=== PATIENT | male | born 1955 | race Caucasian/White ===

== ENCOUNTER → 2020-10-10 09:06 | Outpatient (CLI) | payer OTHER, SELFPAY ==
--- NOTE | ~2020-10-10 | US_ITS ---
EXAMINATION: US aorta [facility] DATE: 10/10/2020 09:38 INDICATION: Abdominal aortic aneurysm screening. TECHNIQUE: Grayscale, color Doppler, and pulsed Doppler images of the aorta and common iliac arteries were obtained. COMPARISON: None. FINDINGS: The aorta is normal in caliber. The right common iliac artery is obscured by bowel gas. The left comm on iliac artery is obscured by bowel gas. IMPRESSION: 1. No abdominal aortic aneurysm. Reviewed, dictated and finalized at location A.
== END ==
PROVIDERS: PCP Internal Medicine; Visit Provider Internal Medicine
DX: Z87.891 Personal history of nicotine dependence (principal)
CPT/HCPCS: 76706

== ENCOUNTER 2024-02-28 13:35 | Observation (INO) | payer OTHER, SELFPAY ==
[2024-02-28] VITALS (14 sets, daily range): BP systolic 110–146; BP diastolic 72–86; PULSE 80–168; RESP 15–23; TEMP 36.5; O2SAT 96–99; BMI 40.2
--- NOTE | ~2024-02-28 | XR_ITS ---
EXAMINATION: XR chest 2V DATE: 02/28/2024 21:04 INDICATION: New atrial flutter. Fall. TECHNIQUE: PA and lateral views of the chest were obtained. COMPARISON: Chest radiograph dated 09/04/06 warm and FINDINGS: The lungs are clear with no focal airspace opacities, pulmonary edema, pleural effusion or pneumothor ax. The cardiomediastinal silhouette is normal. Chronic right scapular fracture. IMPRESSION: 1. No acute cardiopulmonary disease. Reviewed, dictated and finalized at location A.
--- NOTE | ~2024-02-28 | XR_ITS ---
EXAMINATION: XR shoulder RT min 2V DATE: 02/28/2024 14:49 INDICATION: Right shoulder pain. Fall. TECHNIQUE: 4 views of right shoulder were obtained. COMPARISON: Right shoulder radiographs 11/19/2009 FINDINGS: Alignment is normal. No fracture. Glenohumeral joint is normal. There is severe acromioclav icular joint osteoarthritis. IMPRESSION: 1. Severe acromioclavicular joint osteoarthritis. Reviewed, dictated and finalized at location A.
--- NOTE | ~2024-02-28 | XR_ITS ---
EXAMINATION: XR shoulder LT min 2V DATE: 02/28/2024 14:49 INDICATION: Left shoulder pain. TECHNIQUE: 4 views of left shoulder were obtained. COMPARISON: Left shoulder radiograph 11/19/2009 FINDINGS: Bone alignment is normal. No fracture. Glenohumeral joint is normal. There is severe acromi oclavicular joint osteoarthritis. IMPRESSION: 1. Severe acromioclavicular joint osteoarthritis. Reviewed, dictated and finalized at location A.
--- NOTE | 2024-02-28 13:46 | ECG_ITS ---
Test Date: 2024-02-28 13:57:54 Measurements Intervals [place] Rate: 152 P: 0 RI: 0 QRS: 51 QRSD: 88 T: 48 QT: 307 QTc: 489 Interpretive Statements ATRIAL FLUTTER/TACHYCARDIA WITH RAPID VENTRICULAR RESPONSE WITH ABERRANT CONDUCTION OR VENTRICULAR PREMATURE COMPLEXES LOW QRS VOLTAGE IN PRECORDIAL LEADS [QRS DEFLECTION < 1.0 mV IN CHEST LEADS] INCOMPLETE RIGHT BUNDLE BRANCH BLOCK No previous ECG available for comparison Electronically Signed On 02-29-2024 14:23:48 CDT by Aaliyah Reilly M.D.
--- NOTE | 2024-02-28 14:00 | ED.UPPEXIN ---
HPI - Extremity Injury (Upper) General Chief Complaint: Extremity Injury, Upper Stated Complaint: Fall, Bilateral Shoulder Pain Time Seen by Provider: 02/28/24 13:53 Source: patient and family Mode of arrival: ambulatory Limitations: no limitations History of Present Illness HPI narrative: Patient presents with bilateral shoulder pain after a fall yesterday. He tripped in his yard after mowing, thinks he might have stumbled on a mole hole. No loss of consciousness. He has not yet taken anything for pain. Last night he was unable to life either extremity but someone helped him perform range of motion exercises and he was able to move arm after that. Found to have an elevated heart rate but he denies chest pain or shortness of breath. No diagnosis of Afib/Aflutter. No on anticoagulation. He takes lisinopril for hypertension and allopurinol for gout. Also lipitor for HLD. Related Data Home Medications Medication Instructions Recorded Confirmed magnesium 200 mg tablet 400 mg PO DAILY 10/29/19 02/28/24 cholecalciferol (vitamin D3) 125 125 mcg PO DAILY 12/17/20 02/28/24 mcg (5,000 unit) capsule Allergies Allergy/AdvReac Type Severity Reaction Status Date / Time No Known Allergies Allergy Verified 02/28/24 14:56 [facility] Past Medical History Medical History Atrial flutter with rapid ventricular response COVID-19 vaccine series completed Dyslipidemia History of gout History of tobacco use HTN (hypertension), benign Vitamin D deficiency Surgical History Surgical History H/O gastric bypass Family History Family History Father Hypertension Dementia Social History Social History Smoking packs per day: 1 Smoking cigarettes per day: 20.0 Years smoked: 30 Smoking pack-years: 30.00 Smoking status: Current every day smoker Tobacco type: cigarettes Second hand tobacco smoke exposure: Yes Smoking end date: 07/10/03 Alcohol intake: current Drinks per week: 70 Substance use type: marijuana Last use: 02/27/24 Do You Feel Safe in your Home?: Yes Lack of Transportation: No Lack of Food: Never True Current Housing: I Have Housing Concerned About Future Housing: No Difficulty Paying Gas/Electric Bills: No Difficulty Paying for Meds: No Currently Unemployed: No Education: High School Diploma/GED Difficulty w/ Childcare or Family Care: No Spiritual care concerns: No Exam Const: General: healthy appearing, no acute distress and alert; No diaphoretic or ill appearing Nutritional Appearance: well nourished and obese Orientation/consciousness: patient oriented x3 Limitations: no limitations HENMT: Head: normal to inspection Other: gross auditory acuity intact Eyes: Conjunctivae: conjunctivae normal Direct Ophthalmoscopy: no photophobia Other: no scleral icterus Neck: Neck: no meningeal signs Chest: Chest palpation & inspection: normal inspection of the chest Resp: Effort & Inspection: normal respiratory effort, not labored, no retractions, not tachypneic and no use of accessory muscles Cardio: Rate: tachycardic Rhythm: abnormal rhythm GI: GI Palp: Yes Soft to palpation Skin: General skin exam: normal color, no jaundice and no pallor Neuro: General: patient oriented x3, no meningeal signs and no focal motor deficits Speech: normal speech Psych: Mental Status: mental status grossly normal Affect: normal affect Attitude: cooperative Course Vital Signs Vital signs: Vital Signs Temperature 97.7 F 02/28/24 13:42 Pulse Rate 168 H 02/28/24 13:42 Respiratory Rate 20 02/28/24 13:42 Blood Pressure 110/74 02/28/24 13:42 Pulse Oximetry 96 02/28/24 13:42 Oxygen Delivery Room Air 02/28/24 13:42 Temperature 98.3
[2024-02-28] MEDS: dilTIAZem HCl INJ 25 MG/5 ML VIAL IV PUSH (14:06)
--- NOTE | 2024-02-28 14:13 | ECG_ITS ---
Test Date: 2024-02-28 14:13:24 Measurements Intervals [place] Rate: 91 P: 0 FL: 0 QRS: 31 QRSD: 93 T: 37 QT: 356 QTc: 438 Interpretive Statements ATRIAL FLUTTER/TACHYCARDIA LOW QRS VOLTAGE IN PRECORDIAL LEADS [QRS DEFLECTION < 1.0 mV IN CHEST LEADS] INCOMPLETE RIGHT BUNDLE BRANCH BLOCK Compared to ECG 02/28/2024 13:57:54 RVR NO LONGER PRESENT Electronically Signed On 02-29-2024 14:24:37 CDT by Aaliyah Reilly M.D.
[2024-02-28] MEDS: HYDROcodone/acetaminophen (*CRX) 5-325 MG TABLET 1 TAB PO ×2 (14:27→19:25)
[2024-02-28 14:47] LABS: Alanine Aminotransferase 54 U/L (6-50); Albumin Level 4.1 g/dL (3.5-5.1); Alkaline Phosphatase 88 U/L (38-126); Anion Gap 14 mmol/L (4-12); Aspartate Amino Transferase 84 U/L (17-59); Basophils Absolute Auto 0.1 K/mm3 (0.0-0.1); Basophils Percent Auto 0.5 % (0.2-1.2); Bilirubin,Total 0.8 mg/dL (0.2-1.3); Blood Urea Nitrogen 5 mg/dL (9-20); Carbon Dioxide 19 mmol/L (22-30); Chloride 103 mmol/L (98-107); Eosinophils Absolute Auto 0.1 K/mm3 (0-0.3); Eosinophils Percent Auto 0.5 % (0-4.4); Estimated CRCL calculation 115 ml/min; Estimated Glomerular Filt Rate > 60; Glucose 105 mg/dL (65-110); Hemoglobin 16.8 g/dL (14.0-18.0); Immature Granulocyte Absolute 0.07 K/mm3 (0.00-0.031); Immature Granulocyte Percent A 0.7 % (0-0.5); Lymphocytes Absolute Auto 1.78 K/mm3 (0.9-3.2); Lymphocytes Percent Auto 18.4 % (18.3-44.2); Magnesium 1.7 mg/dL (1.6-2.3); Mean Corpuscular HGB Conc 34.3 g/dl (32-36); Mean Corpuscular Hemoglobin 33.9 pg (26-34); Mean Platelet Volume 11.3 fl (7.4-10.4); Monocytes Absolute Auto 1.1 K/mm3 (0.1-0.6); Monocytes Percent Auto 11.4 % (2.6-8.5); Neutrophils Absolute Auto 6.6 K/mm3 (1.3-6.7); Neutrophils Percent Auto 68.5 % (45.5-73.1); Platelet Count Result 292 k/mm3 (150-375); Potassium 4.5 mmol/L (3.4-5.0); Red Blood Count 4.95 M/mm3 (4.6-6.20); Red Cell Distribution Width 13.8 % (11.5-14.5); Sodium 136 mmol/L (137-145); White Blood Count 9.7 K/mm3 (4.5-10.0)
--- NOTE | 2024-02-28 17:34 | PM.IMHP ---
H&P: HPI History of Present Illness Date/Time: 02/28/24 17:34 Chief Complaint: Fall Narrative: 69 y/o M presents here after a ground-level fall with PMH of dyslipidemia, gout, hypertension, and tobacco use (1 PPD, 25 years approximately). The Patient presents here for further evaluation after a ground level fall that occurred yesterday. Patient reports he had tripped and fell while he was mowing his grass due to stepping in a mole hole. Denies head strike or loss of consciousness. Post-fall he was complaining of bilateral shoulder pain and inability to lift either extremity well due to pain. Denies weakness in BUE. Patient is not on anticoagulation. During workup in the emergency department, it was noted on patient's telemetry that he was tachycardic. EKG showed new atrial flutter. Patient has no known history of dysrhythmia. He denies accompanying chest pain, palpitations, dizziness, presyncope, nausea/vomiting, fatigue, or diaphoresis. Patient was given diltiazem 25 mg IVP with conversion to normal sinus rhythm. Initial VS at presentation: 97.7? F, HR 168, RR 20, 110/74, and 96% on RA. ED workup showed: No leukocytosis, no anemia, creatinine 0.7 and GFR >60, AST 84, ALT 54, TSH 1.51. left shoulder XR showed severe acromioclavicular joint osteoarthritis. Left shoulder XR showed severe acromioclavicular joint osteoarthritis. initial EKG showed atrial flutter /tachycardia with RVR, rate 152. Review of Systems Review of Systems: All systems reviewed & are unremarkable except as noted in HPI and below [facility] Past Medical History Medical History Atrial flutter with rapid ventricular response COVID-19 vaccine series completed Dyslipidemia History of gout History of tobacco use HTN (hypertension), benign Vitamin D deficiency Surgical History Surgical History H/O gastric bypass Family History Family History Father Hypertension Dementia Social History Social History Smoking packs per day: 1 Smoking cigarettes per day: 20.0 Years smoked: 30 Smoking pack-years: 30.00 Smoking status: Current every day smoker Tobacco type: cigarettes Second hand tobacco smoke exposure: Yes Smoking end date: 07/10/03 Alcohol intake: current Drinks per week: 70 Substance use type: marijuana Last use: 02/27/24 Do You Feel Safe in your Home?: Yes Lack of Transportation: No Lack of Food: Never True Current Housing: I Have Housing Concerned About Future Housing: No Difficulty Paying Gas/Electric Bills: No Difficulty Paying for Meds: No Currently Unemployed: No Education: High School Diploma/GED Difficulty w/ Childcare or Family Care: No Spiritual care concerns: No Meds Home Medications and Allergies Home Medications Medication Instructions Recorded Confirmed Type magnesium 200 mg tablet 400 mg PO DAILY 10/29/19 02/28/24 History cholecalciferol (vitamin D3) 125 125 mcg PO DAILY 12/17/20 02/28/24 History mcg (5,000 unit) capsule allopurinol 100 mg tablet See Rx Instructions .Route 11/17/23 02/28/24 Rx .COMPLEX #180 tabs lisinopril 20 mg tablet See Rx Instructions .Route 12/27/23 02/28/24 Rx .COMPLEX #90 tabs Allergies Allergy/AdvReac Type Severity Reaction Status Date / Time No Known Allergies Allergy Verified 02/28/24 14:56 Vital Signs Vital Signs - 24 hr 02/28/24 13:42 02/28/24 14:12 02/28/24 14:16 Temperature 97.7 F Pulse Rate 168 H 85 80 Respiratory Rate 20 20 21 H Blood Pressure 110/74 117/81 Pulse Oximetry 96 97 97 Oxygen Delivery Room Air 02/28/24 14:50 02/28/24 15:00 02/28/24 15:30 Temperature Pulse Rate 89 86 85 Respiratory Rate 15 15 18 Blood Pressure 126/86 Pulse Oximetry 98 98 98 Oxygen Delivery
--- NOTE | 2024-02-28 17:43 | ADMGEN ---
This patient, Michael Montanez, was admitted to IMU Room 213-01 on 02/28/2024 at 1717. Patient/family oriented to hospital policies and general routines including ID bracelet, bed and alarms, visiting hours, pain management, procedures, bathroom and other care routines, personal items, smoking policy, room service/diet, and visiting hours. Information on how to activate the Rapid Response Team has been discussed. Patient/Family are encouraged to report perceived risks to care and to ask questions if they do not understand what they are told or what they should do.
[2024-02-28] MEDS: dilTIAZem HCL 30 MG TABLET PO (18:17)
[2024-02-28] MEDS: APIXABAN 5 MG TABLET PO (21:56)
[2024-02-29] VITALS (21 sets, daily range): BP systolic 114–159; BP diastolic 68–84; PULSE 66–113; RESP 18–22; TEMP 36.2–37.4; O2SAT 96–100
--- NOTE | 2024-02-29 | ECHO_ITS ---
Patient Info Name: Michael Montanez Age: 69 years : 1955 Gender: Male Ht: 70 in Wt: 280 lbs BSA: 2.56 m2 HR: 75 bpm BP: 137 / 80 mmHg Technical Quality: Fair Exam Date: 02/29/2024 10:25 AM Exam Location: Echo Lab Patient Status: Outpatient Admit Date: 02/28/2024 Staff Ordering Physician: Tamra Bhandari APRN Ribbon Winder: Jocy Hernandez RDCS Attending Provider: Ronda Wyman MD Referring Physician: Elisabet TRINIDAD; Exam Type: CA echo doppler color flow Study Info Indications - new dysrhythmia Complete two-dimensional, color flow and Doppler transthoracic echocardiogram is performed with contrast to opacify the left ventricle and to improve the deliniation of the left ventricle endocardial borders. Contrast/Agitated Saline Contrast/Ag. Saline: Definity Amount: 2.00 ml Existing IV Access: Yes IV Access Condition: patent with no signs of infiltration Summary 1. Left ventricular chamber dimension is normal. 2. Left ventricular systolic function is normal, estimated at 65-70%. 3. The left ventricular diastolic function is grade I diastolic dysfunction. 4. Right ventricular chamber dimension is mildly enlarged. 5. Right ventricular systolic function is normal. 6. Right atrial chamber dimension is mildly enlarged. 7. There is mild aortic valve regurgitation. 8. There is mild mitral valve regurgitation. 9. There is mild tricuspid valve regurgitation. Left Ventricle Left ventricular chamber dimension is normal. Left ventricular systolic function is normal, estimated at 65-70%. There is no increased left ventricular wall thickness. The left ventricular diastolic function is grade I diastolic dysfunction. Right Ventricle Right ventricular chamber dimension is mildly enlarged. Right ventricular systolic function is normal. Left Atria Left atrial chamber dimension is normal. Right Atria Right atrial chamber dimension is mildly enlarged. Atrial Septum Intact interatrial septum visualized by color flow imaging. Aortic Valve The aortic valve is probable trileaflet. There is mild aortic valve regurgitation. Pulmonic Valve The pulmonic valve is not well visualized. Mitral Valve There is mild mitral valve regurgitation. Tricuspid Valve There is mild tricuspid valve regurgitation. Pericardium/Pleural There is no pericardial effusion. Inferior Vena Cava Normal inferior vena cava with >50% collapse upon inspiration consistent with normal right atrial pressure, 3 mmHg. Aorta The aortic root size at the sinus of Valsalva is normal. Left Ventricular Outflow Tract Name Value Normal LVOT 2D LVOT Diameter 2.1 cm LVOT Doppler LVOT Peak Gradient 5 mmHg LVOT Mean Gradient 2 mmHg LVOT VTI 27 cm LVOT VTI/AV VTI Ratio 1.3 LVOT Stroke Volume 98 ml LVOT CO 6.2 l/min LVOT CI 2.4 l/min/m2 Pulmonic Valve Name Value Normal -------
[2024-02-29] MEDS: dilTIAZem HCL 30 MG TABLET PO (00:03)
--- NOTE | 2024-02-29 00:17 | ECG_ITS ---
Test Date: 2024-02-29 00:23:16 Measurements Intervals [place] Rate: 113 P: 0 MT: 0 QRS: 145 QRSD: 110 T: 138 QT: 361 QTc: 496 Interpretive Statements ATRIAL FLUTTER/TACHYCARDIA WITH RAPID VENTRICULAR RESPONSE WITH ABERRANT CONDUCTION OR VENTRICULAR PREMATURE COMPLEXES INCOMPLETE RIGHT BUNDLE BRANCH BLOCK Compared to ECG 02/28/2024 14:13:24 RVR NOW PRESENT Electronically Signed On 02-29-2024 14:44:01 CDT by Aaliyah Reilly M.D.
[2024-02-29] MEDS: MAGNESIUM SULF 2 GM/WATER 50ML 2 GM/50 ML BAG IVPB (01:04)
[2024-02-29] MEDS: dilTIAZem 100 MG/100 ML 100 MG/100 ML BAG IV CONT (01:09)
[2024-02-29 05:11] LABS: Basophils Absolute Auto 0.1 K/mm3 (0.0-0.1); Basophils Percent Auto 0.7 % (0.2-1.2); Eosinophils Absolute Auto 0.1 K/mm3 (0-0.3); Eosinophils Percent Auto 1.3 % (0-4.4); Hematocrit 48.1 % (42.0-52.0); Hemoglobin 16.1 g/dL (14.0-18.0); Immature Granulocyte Absolute 0.04 K/mm3 (0.00-0.031); Immature Granulocyte Percent A 0.6 % (0-0.5); Lymphocytes Absolute Auto 1.81 K/mm3 (0.9-3.2); Lymphocytes Percent Auto 26.6 % (18.3-44.2); Mean Corpuscular HGB Conc 33.5 g/dl (32-36); Mean Corpuscular Hemoglobin 33.4 pg (26-34); Mean Corpuscular Volume 99.8 fl (80-100); Mean Platelet Volume 11.3 fl (7.4-10.4); Monocytes Absolute Auto 0.8 K/mm3 (0.1-0.6); Monocytes Percent Auto 11.9 % (2.6-8.5); Neutrophils Percent Auto 58.9 % (45.5-73.1); Platelet Count Result 218 k/mm3 (150-375); Red Blood Count 4.82 M/mm3 (4.6-6.20); Red Cell Distribution Width 13.8 % (11.5-14.5); White Blood Count 6.8 K/mm3 (4.5-10.0)
[2024-02-29 05:27] LABS: Alanine Aminotransferase 45 U/L (6-50); Albumin Level 3.7 g/dL (3.5-5.1); Alkaline Phosphatase 82 U/L (38-126); Anion Gap 7 mmol/L (4-12); Aspartate Amino Transferase 65 U/L (17-59); Bilirubin,Total 1.3 mg/dL (0.2-1.3); Blood Urea Nitrogen 8 mg/dL (9-20); Calcium 8.8 mg/dL (8.4-10.2); Carbon Dioxide 27 mmol/L (22-30); Chloride 101 mmol/L (98-107); Estimated CRCL calculation 101 ml/min; Estimated Glomerular Filt Rate > 60; Glucose 85 mg/dL (65-110); Potassium 4.1 mmol/L (3.4-5.0); Sodium 135 mmol/L (137-145)
[2024-02-29] MEDS: HYDROcodone/acetaminophen (*CRX) 5-325 MG TABLET 1 TAB PO (06:50)
[2024-02-29] MEDS: MAGNESIUM OXIDE 400 MG TABLET PO (08:26)
[2024-02-29] MEDS: lisinopriL 20 MG TABLET PO (08:26)
[2024-02-29] MEDS: CHOLECALCIFEROL 1,000 UNITS TABLET 5000 UNITS PO (08:26)
[2024-02-29] MEDS: APIXABAN 5 MG TABLET PO ×2 (08:26→19:44)
[2024-02-29] MEDS: allopurinoL 100 MG TABLET 200 MG PO (08:26)
[2024-02-29] MEDS: DICLOFENAC SODIUM 1% 100 GM GEL (*BKC) 1 APPLIC TOPICAL ×4 (08:27→19:44)
--- NOTE | 2024-02-29 09:45 | ECG_ITS ---
Test Date: 2024-02-29 09:58:25 Measurements Intervals [place] Rate: 71 P: 53 CO: 152 QRS: 19 QRSD: 95 T: 29 QT: 404 QTc: 440 Interpretive Statements SINUS RHYTHM LOW QRS VOLTAGE IN PRECORDIAL LEADS [QRS DEFLECTION < 1.0 mV IN CHEST LEADS] INCOMPLETE RIGHT BUNDLE BRANCH BLOCK [90+ ms QRS DURATION, TERMINAL R IN V1/V2, 40+ ms S IN I/aVL/V4/V5/V6] Compared to ECG 02/29/2024 00:23:16 SINUS RHYTHM NOW PRESENT Electronically Signed On 02-29-2024 15:13:14 CDT by Aaliyah Reilly M.D.
--- NOTE | 2024-02-29 13:23 | PM.CNCAR ---
Assessment and Plan Assessment and plan (1) Atrial flutter with rapid ventricular response: Code(s): I48.92 - Unspecified atrial flutter Status: Acute Assessment and Plan: This is a new diagnosis. He was asymptomatic when atrial fibrillation, so unsure of arrhythmia onset. He was placed on a diltiazem drip and spontaneously converted to sinus rhythm overnight. I discussed the diagnosis of atrial flutter including pathophysiology, management, risks/complications. Since he is already back in sinus rhythm I am going to stop his diltiazem drip and transition him to oral diltiazem. He has already appropriately been started on anticoagulation. Echo is pending. Will check an ApneaLink tonight. OK for discharge from a cardiac standpoint if his echo is unremarkable. (2) Morbid obesity: Code(s): E66.01 - Morbid (severe) obesity due to excess calories Status: Acute Assessment and Plan: Weight loss recommended. (3) Dyslipidemia: Code(s): E78.5 - Hyperlipidemia, unspecified Status: Acute Assessment and Plan: Continue statin. History of Present Illness History of Present Illness Consult date/time: 02/29/24 13:23 Requesting physician: Verna Barlow MD Consult reason: Other (atrial flutter) Reason For Visit: Aflutter RVR/ New Dx Now Rate Controlled/ Converte Narrative: Michael Montanez is a 69 year old male who came to the hospital because of bilateral shoulder pain. His initial EKG showed atrial flutter with rapid ventricular response which is why cardiology has been asked to see him. He denies any history of atrial flutter or any other arrhythmias. He denies any palpitations, chest pain, shortness of breath, edema, or orthopnea. His heart rate was initially in the 150's therefore he was placed on a diltiazem drip. Early this morning he did spontaneously convert to sinus rhythm and has remained in sinus rhythm since. He is feeling well at the time of my evaluation though he does still have some left shoulder pain. Review of Systems Review of Systems: All systems reviewed & are unremarkable except as noted in HPI and below [facility] Past Medical History Medical History Atrial flutter with rapid ventricular response COVID-19 vaccine series completed Dyslipidemia History of gout History of tobacco use HTN (hypertension), benign Vitamin D deficiency Surgical History Surgical History H/O gastric bypass Family History Family History Father Hypertension Dementia Social History Social History Smoking packs per day: 1 Smoking cigarettes per day: 20.0 Years smoked: 30 Smoking pack-years: 30.00 Smoking status: Current every day smoker Tobacco type: cigarettes Second hand tobacco smoke exposure: Yes Smoking end date: 07/10/03 Alcohol intake: current Drinks per week: 70 Substance use type: marijuana Last use: 02/27/24 Do You Feel Safe in your Home?: Yes Lack of Transportation: No Lack of Food: Never True Current Housing: I Have Housing Concerned About Future Housing: No Difficulty Paying Gas/Electric Bills: No Difficulty Paying for Meds: No Currently Unemployed: No Education: High School Diploma/GED Difficulty w/ Childcare or Family Care: No Spiritual care concerns: No Meds Home Medications and Allergies Home Medications Medication Instructions Recorded Confirmed Type magnesium 200 mg tablet 400 mg PO DAILY 10/29/19 02/28/24 History cholecalciferol (vitamin D3) 125 125 mcg PO DAILY 12/17/20 02/28/24 History mcg (5,000 unit) capsule allopurinol 100 mg tablet See Rx Instructions .Route 11/17/23 02/28/24 Rx .COMPLEX #180 tabs lisinopril 20 mg tablet See Rx Instructions .Route 12/27/23
[2024-02-29] MEDS: dilTIAZem HCL CD 120 MG CAP.24HR PO (14:04)
--- NOTE | 2024-02-29 14:15 | PM.IMPN ---
Progress Note: A&P Assessment and Plan (1) Atrial flutter with rapid ventricular response: Code(s): I48.92 - Unspecified atrial flutter Status: Acute (2) Elevated LFTs: Code(s): R79.89 - Other specified abnormal findings of blood chemistry Status: Acute Plan [age] year old male with a history of obesity, dyslipidemia, gout, hypertension, tobacco abuse. Patient reports he tripped and fell at home. Brought to the ER. Was found to be in atrial flutter with rapid ventricular rate. Cardiology has been consulted, diltiazem drip taken down. He will be transitioned to p.o. diltiazem. Pending echocardiogram. In 3 minutes spent on tobacco cessation counseling. ApneaLink. Monitor LFTs. Her blood pressure. Continue blood pressure medications. Full code. Has been started on Eliquis 5 mg p.o. b.i.d. Subjective Date/time seen: 02/29/24 14:15 Interval history: No acute overnight events. Patient denies any complaints. at bedside. Review of Systems Review of Systems: All systems reviewed & are unremarkable except as noted in HPI and below (Subjective) Exam Const: General: comfortable and no acute distress Eyes: Pupils: Equal, round and reactive pupils present Neck: Neck: supple Resp: Effort & Inspection: normal respiratory effort Auscultation: clear to auscultation bilaterally Cardio: Rate: regular rate Rhythm: regular rhythm GI: GI Palp: Yes Soft to palpation and No Tenderness to palpation present (GI) Extrem: General: no edema Objective Data Vital Signs Vital Signs: Vital Signs - 24 hr 02/28/24 14:16 02/28/24 14:50 02/28/24 15:00 Temperature Pulse Rate 80 89 86 Respiratory Rate 21 H 15 15 Blood Pressure 117/81 126/86 Pulse Oximetry 97 98 98 02/28/24 15:30 02/28/24 16:00 02/28/24 16:10 Temperature Pulse Rate 85 89 91 Respiratory Rate 18 17 23 H Blood Pressure 130/78 130/78 Pulse Oximetry 98 99 99 02/28/24 16:16 02/28/24 17:05 02/28/24 17:17 Temperature Pulse Rate 86 90 98 Respiratory Rate 17 18 Blood Pressure 130/83 128/72 Pulse Oximetry 98 99 02/28/24 17:17 02/28/24 19:59 02/28/24 20:00 Temperature 97.7 F 97.7 F Pulse Rate 86 85 98 Respiratory Rate 16 18 Blood Pressure 146/76 H 126/78 Pulse Oximetry 97 96 02/28/24 22:00 02/29/24 00:32 02/29/24 00:00 Temperature 97.9 F Pulse Rate 91 109 H 113 H Respiratory Rate 18 Blood Pressure 133/74 Pulse Oximetry 99 02/29/24 01:09 02/29/24 02:02 02/29/24 02:00 Temperature Pulse Rate 113 H 81 Respiratory Rate Blood Pressure 138/68 138/68 Pulse Oximetry 02/29/24 02:00 02/29/24 04:00 02/29/24 04:00 Temperature 97.6 F Pulse Rate 88 75 78 Respiratory Rate 18 Blood Pressure 139/75 Pulse Oximetry 100 02/29/24 04:00 02/29/24 06:00 02/29/24 08:00 Temperature 97.2 F L Pulse Rate 75 74 Respiratory Rate 18 Blood Pressure 137/80 159/84 H Pulse Oximetry 99 02/29/24 08:07 02/29/24 08:00 02/29/24 10:00 Temperature Pulse Rate 80 74 76 Respiratory Rate Blood Pressure 159/84 H Pulse Oximetry 02/29/24 10:05 02/29/24 10:00 02/29/24 12:00 Temperature Pulse Rate 79 79 78 Respiratory Rate 20 Blood Pressure 149/70 H 149/70 H 144/84 H Pulse Oximetry 97 02/29/24 12:07 02/29/24 12:00 02/29/24 14:04 Temperature Pulse Rate 78 79 82 Respiratory Rate Blood Pressure 144/84 H 114/69 Pulse Oximetry 02/29/24 14:00 Temperature Pulse Rate 72 Respiratory Rate Blood Pressure Pulse Oximetry Intake/Output Intake/Output: Intake & Output 02/26/24 02/27/24 02/28/24 02/29/24 23:59 23:59 23:59 23:59 Intake Total 742.6 Output Total 300 Balance 442.6 Meds/Results Medications: Active Medications Generic Name Dose Route Start Last Admin Trade Name Freq PRN Reason Stop Dose Admin Acetaminophen 650 mg 02/28/24 16:20 Acetaminophen 325 Mg Tablet PO Q4H PRN Mild Pain
--- NOTE | 2024-02-29 15:56 | PC.NURSE ---
This patient, Michael Montanez, was transferred to [ 301] on 02/29/24 at 1556. Personal belongings sent with patient. Report given to [SOPHIA Lawrence @ 1695 ]. Appropriate documentation sent with patient.
--- NOTE | 2024-02-29 16:48 | PC.NURSE ---
This patient, Michael Montanez, was received from IMU on 02/29/24 at 1625. Report received from SOPHIA Mary. Patient/family oriented to unit policies and routines
[2024-03-01] VITALS: PULSE 80
[2024-03-01 04:00] VITALS: PULSE 77
[2024-03-01 06:00] VITALS: BP 129/73; PULSE 69; RESP 20; TEMP 36.6; O2SAT 99
[2024-03-01 07:14] LABS: Hematocrit 45.1 % (42.0-52.0); Hemoglobin 14.9 g/dL (14.0-18.0); Mean Corpuscular Hemoglobin 33.2 pg (26-34); Mean Corpuscular Volume 100.4 fl (80-100); Mean Platelet Volume 11.6 fl (7.4-10.4); Platelet Count Result 228 k/mm3 (150-375); Red Blood Count 4.49 M/mm3 (4.6-6.20); Red Cell Distribution Width 13.7 % (11.5-14.5); White Blood Count 6.2 K/mm3 (4.5-10.0)
[2024-03-01 07:30] LABS: Alanine Aminotransferase 36 U/L (6-50); Albumin Level 3.5 g/dL (3.5-5.1); Alkaline Phosphatase 75 U/L (38-126); Anion Gap 7 mmol/L (4-12); Aspartate Amino Transferase 55 U/L (17-59); Bilirubin,Total 1.3 mg/dL (0.2-1.3); Blood Urea Nitrogen 10 mg/dL (9-20); Calcium 8.6 mg/dL (8.4-10.2); Carbon Dioxide 28 mmol/L (22-30); Chloride 99 mmol/L (98-107); Estimated CRCL calculation 114 ml/min; Estimated Glomerular Filt Rate > 60; Glucose 89 mg/dL (65-110); Magnesium 1.9 mg/dL (1.6-2.3); Potassium 3.9 mmol/L (3.4-5.0); Sodium 134 mmol/L (137-145)
[2024-03-01 08:00] VITALS: PULSE 73
--- NOTE | 2024-03-01 08:29 | PM.DS ---
DS: Admitting Diagnosis Discharge Date 03/01/2024 Admitting Diagnosis Fall DS: Discharge Diagnosis Discharge Diagnosis (1) Atrial flutter with rapid ventricular response: Code(s): I48.92 - Unspecified atrial flutter Status: Acute (2) Elevated LFTs: Code(s): R79.89 - Other specified abnormal findings of blood chemistry Status: Acute (3) Fall: Code(s): W19.XXXA - Unspecified fall, initial encounter Status: Acute DS: Summary Hospital Course Hospital Course: [age] year old male with a history of obesity, dyslipidemia, gout, hypertension, tobacco abuse. Patient reports he tripped and fell at home. Brought to the ER. Was found to be in atrial flutter with rapid ventricular rate. Cardiology has been consulted, diltiazem drip taken down. He will be transitioned to p.o. diltiazem. Echocardiogram reviewed. Okay per discharge per Cardiology. Apnea link was also done which showed high probability for sleep apnea. Advised to follow up with PCP to get sleep study done. Patient was also started on Eliquis for atrial fibrillation. Time Spent with Patient Time attestation: Total time spent providing and/or coordinating discharge services: DS: Data Data Completed and Pending Completed studies during hospitalization: Exam Type: CA echo doppler color flow Study Info Indications - new dysrhythmia Complete two-dimensional, color flow and Doppler transthoracic echocardiogram is performed with contrast to opacify the left ventricle and to improve the deliniation of the left ventricle endocardial borders. Contrast/Agitated Saline Contrast/Ag. Saline: Definity Amount: 2.00 ml Existing IV Access: Yes IV Access Condition: patent with no signs of infiltration Summary 1. Left ventricular chamber dimension is normal. 2. Left ventricular systolic function is normal, estimated at 65-70%. 3. The left ventricular diastolic function is grade I diastolic dysfunction. 4. Right ventricular chamber dimension is mildly enlarged. 5. Right ventricular systolic function is normal. 6. Right atrial chamber dimension is mildly enlarged. 7. There is mild aortic valve regurgitation. 8. There is mild mitral valve regurgitation. 9. There is mild tricuspid valve regurgitation. Left Ventricle Left ventricular chamber dimension is normal. Left ventricular systolic function is normal, estimated at 65-70%. There is no increased left ventricular wall thickness. The left ventricular diastolic function is grade I diastolic dysfunction. Right Ventricle Right ventricular chamber dimension is mildly enlarged. Right ventricular systolic function is normal. Left Atria Left atrial chamber dimension is normal. Right Atria Right atrial chamber dimension is mildly enlarged. Atrial Septum Intact interatrial septum visualized by color flow imaging. Aortic Valve The aortic valve is probable trileaflet. There is mild aortic valve regurgitation. Pulmonic Valve The pulmonic valve is not well visualized. Mitral Valve There is mild mitral valve regurgitation. Tricuspid Valve There is mild tricuspid valve regurgitation. Pericardium/Pleural There is no pericardial effusion. Inferior Vena Cava Normal inferior vena cava with >50% collapse upon inspiration consistent with normal right atrial pressure, 3 mmHg. Aorta The aortic root size at the sinus of Valsalva is normal. Labs on day of discharge: Labs from last 24 hours 03/01/24 06:14 WBC 6.2 RBC 4.49 L Hgb 14.9 Hct 45.1 MCV 100.4 H MCH 33.2 MCHC 33.0 RDW 13.7 Plt Count 228 MPV 11.6 H Sodium 134 L Potassium 3.9 Chloride 99 Carbon Dioxide 28 Anion Gap 7 BUN 10 Creatinine 0.70 Estim Creat Clear Calc 114 Estimated GFR > 60 Glucose 89 Calcium 8.6 Magnesium 1.9 Total Bilirubin 1.3
[2024-03-01] MEDS: allopurinoL 100 MG TABLET 200 MG PO (08:52)
[2024-03-01] MEDS: APIXABAN 5 MG TABLET PO (08:52)
[2024-03-01] MEDS: MAGNESIUM OXIDE 400 MG TABLET PO (08:52)
[2024-03-01] MEDS: DICLOFENAC SODIUM 1% 100 GM GEL (*BKC) 1 APPLIC TOPICAL (08:53)
[2024-03-01] MEDS: lisinopriL 20 MG TABLET PO (08:53)
[2024-03-01] MEDS: dilTIAZem HCL CD 120 MG CAP.24HR PO (08:53)
[2024-03-01] MEDS: CHOLECALCIFEROL 1,000 UNITS TABLET 5000 UNITS PO (08:53)
== END 2024-03-01 10:13 | disposition home or self-care (01) ==
LOC: ANHED 14:33 → ANHIMU 17:13 → ANH3MEDSUR 02-29 19:38 → ANHIMU 03-04 08:36
PROVIDERS: General Practice; Student in an Organized Health Care Education/Training Program; Admitting Provider Family Medicine; Emergency Provider Student in an Organized Health Care Education/Training Program; PCP Emergency Medicine; Visit Provider Internal Medicine
DX: I48.92 Unspecified atrial flutter (principal); R79.89 Other specified abnormal findings of blood chemistry; M25.512 Pain in left shoulder; M25.511 Pain in right shoulder; W18.30XA Fall on same level, unspecified, initial encounter; E78.49 Other hyperlipidemia; I10 Essential (primary) hypertension; E55.9 Vitamin D deficiency, unspecified; Z98.84 Bariatric surgery status; F17.210 Nicotine dependence, cigarettes, uncomplicated; M10.9 Gout, unspecified; E66.01 Morbid (severe) obesity due to excess calories; Z68.39 Body mass index [BMI] 39.0-39.9, adult
CPT/HCPCS: 36415; 71046; 73030; 80053; 83735; 84443; 85025; 85027; 93005; 93306; 94762; 96365; 96366; 96375; 96376; 99285; A9270; G0378; J3475

== ENCOUNTER 2025-07-02 13:57 | Inpatient (IN) | payer OTHER, SELFPAY ==
[2025-07-02] VITALS (47 sets, daily range): BP systolic 45–151; BP diastolic 15–137; PULSE 91–154; RESP 10–28; TEMP 35.4–37.1; O2SAT 73–100; BMI 39.2
--- NOTE | ~2025-07-02 | XR_ITS ---
XR chest 1V portable 07/02/2025 19:13 Indication: Ventilator management. Respiratory distress. Procedure: AP portable chest Comparison: 07/02/2025 Findings: Cardiomegaly. Mild pulmonary edema. Small left pleural effusion. Endotracheal tube tip 6 cm above the marleni. Right IJ central line tip in the SVC. NG tube in the stomach. Impression: 1: Interval progression of pulmonary edema. Reviewed, dictated and finalized at location O. SERVICE EDUCATOR Impression: 1: Interval progression of pulmonary edema.
--- NOTE | ~2025-07-02 | CT_ITS ---
EXAMINATION: CT knee LT wo con DATE: 07/02/2025 15:35 INDICATION: Knee injury. TECHNIQUE: Computed tomography (CT) of the left was performed without intravenous contrast. The dose-length product was 593.65 mGy-cm. Automated exposure control and iterative reconstruction technique were employed. COMPARISON: None FINDINGS: Possible nondisplaced fracture at the tibial spine. No joint effusion. The distal aspect of the femur is unremarkable. Mild diffuse lateral soft tissue edema. Proximal fibula is unremarkable. IMPRESSION: 1. Possible acute nondisplaced fracture at the tibial spine. Recommend correlation with MRI. Reviewed, dictated and finalized at location O. GER METROLOGY IMPRESSION: 1. Possible acute nondisplaced fracture at the tibial spine. Recommend correlat ion with MRI.
--- NOTE | ~2025-07-02 | CT_ITS ---
CT HEAD NON-CONTRAST Clinical History: cardiac arrest Comparison: None Technique: Unenhanced axial images skull base to vertex Coronal, sagittal reformats CT images acquired with automatic exposure control for dose reduction DLP: 681 mGy-cm Findings: Streak artifact could obscure abnormality. Mild global atrophy. Mild white matter changes, typically chronic microvascular ischemic disease. Sulci, ventricles: Unremarkable. No intracerebral hemorrhage. No evidence acute territorial infarct. No mass effect, midline shift. Bony calvarium intact. Visualized paranasal sinuses: Clear. Mastoid air cells: Clear. IMPRESSION: 1. No acute intracranial findings. Reviewed, dictated and finalized at location R. AND FENDER WORKER
--- NOTE | ~2025-07-02 | XR_ITS ---
XR chest port-a-cath/central 07/02/2025 14:47 Indication: Central line placement Procedure: AP portable chest Comparison: 02/28/2024 Findings: Right IJ central line tip in the SVC. Cardiomegaly. Mild pulmonary edema. No significant effusion. No pneumothorax. No acute osseous abnormality. Endotracheal tube tip 5.9 cm above the marleni. Impression: 1: Cardiomegaly with interstitial edema. Reviewed, dictated and finalized at location O. RAMS MANAGER Impression: 1: Cardiomegaly with interstitial edema.
--- NOTE | ~2025-07-02 | CT_ITS ---
EXAMINATION: CTA chest abdomen pelvis DATE: 07/02/2025 15:42 PRECISION DANCER INDICATION: Post arrest. TECHNIQUE: Computed tomographic angiography (CTA) of the chest, abdomen, and pelvis was performed with 100 mL Omnipaque-350 intravenous contrast. The dose- length product was 2094.95 mGy-cm. Maximum intensity projection 3D- reconstructions of the aorta and other arteries were constructed by the technologist on a separate workstation. COMPARISON: None. FINDINGS: CHEST CTA: Cardiomegaly. There is atherosclerosis of the aorta without aneurysm or dissection. No central pulmonary embolism. No thoracic lymphadenopathy. There is an endotracheal tube in the mainstem bronchus. NG tube passes into the stomach. There is bilateral lower lobe airspace consolidation which may represent atelectasis and/or pneumonia. Cannot exclude aspiration. There is atelectasis of the left upper lobe. No pneumothorax. 8 mm pleural-based right upper lobe nodule, image 96. ABDOMEN AND PELVIS CTA: Fatty infiltration of the liver. The spleen, pancreas, adrenal glands and kidneys are unremarkable. Gallbladder is present. Small air-fluid levels present in nondilated bowel throughout the abdomen, likely ileus. The appendix contains gas and its tip, of no clinical significance. Tena catheter present in the bladder. Left inguinal hernia containing fat. Gallbladder is present. No free air. No evidence for aortic aneurysm or dissection. No lymphadenopathy. IMPRESSION: 1. Bilateral lower lobe airspace consolidation may represent atelectasis and/or pneumonia. Consider aspiration. 2: Pleural-based right upper lobe nodule measuring 8 mm. Recommend follow-up CT in 6 months. 3: Air-fluid levels in nondilated bowel throughout the abdomen, consistent with ileus. No transition point. Reviewed, dictated and finalized at location O. ISION DANCER
--- NOTE | ~2025-07-02 | XR_ITS ---
XR abdomen gastric tube insert INDICATION: Evaluate NG tube position. TECHNIQUE: Limited KUB perform for evaluating NG tube . COMPARISON: No prior studies for comparison. FINDINGS: NG tube tip in the stomach. Visualized bowel gas pattern is nonspecific. IMPRESSION: 1: NG tube tip in the stomach. Reviewed, dictated and finalized at location O. RVISOR ROLLER SHOP
--- NOTE | 2025-07-02 13:57 | PC.NURSE ---
Pt arrives to ED room 5 at 1356, unresponsive with a pulse. Ems reports pt was originally alert and awake, was found in between toilet and wall in bathroom. When ems sat pt up, he was awake for approx 1 min and then went unresponsive and pulseless. Initial rhythm for ems was PEA and then pt went into asystole. Ems gave 4 epi and 1 push dose epi. Intubated with 7.5 ETT [address] lip[address] EDP Dr. Sharp and RT at bedside. Pt placed on likepak and HR [address] Sharp reports pt pupils fixed and dilated at 1359.
--- NOTE | 2025-07-02 14:34 | ECG_ITS ---
Test Date: 2025-07-02 14:04:33 Measurements Intervals [place] Rate: 109 P: 44 [place]: 171 QRS: 2 QRSD: 101 T: 42 QT: 347 QTc: 468 Interpretive Statements SINUS TACHYCARDIA POSSIBLE LEFT ATRIAL ENLARGEMENT INCOMPLETE RIGHT BUNDLE BRANCH BLOCK LOW QRS VOLTAGE IN PRECORDIAL LEADS CONSIDER INFERIOR INFARCT, AGE INDETERMINATE ST-T WAVE ABNORMALITY IN ANTEROLATERAL LEADS- CONSIDER ISCHEMIA BASELINE ARTIFACT- AVR, AVL, AVF, V4-V6 ABNORMAL ECG Compared to ECG 02/29/2024 09:58:25 HEART RATE HAS INCREASED POSSIBLE ISCHEMIA NOW PRESENT Electronically Signed On 07-02-2025 18:55:37 REFRIGERATOR REPAIR TECHNICIAN by Ernesto Bermudez D.O.
[2025-07-02 14:49] LABS: Hematocrit 49.2 % (42.0-52.0); Hemoglobin 16.2 g/dL (14.0-18.0); Immature Granulocyte Percent A 4.3 % (0-0.5); Lymphocytes Absolute Auto 2.27 K/mm3 (0.9-3.2); Mean Corpuscular HGB Conc 32.9 g/dl (32-36); Mean Corpuscular Hemoglobin 34.3 pg (26-34); Mean Corpuscular Volume 104.2 fl (80-100); Nucleated Red Blood Cells Absolute Auto 0.040 K/mm3 (0.0-0.012); Nucleated Red Blood Cells Perc 0.4 % (0.0-0.2); Platelet Count Result 197 k/mm3 (150-375); Red Blood Count 4.72 M/mm3 (4.6-6.20); White Blood Count 10.8 K/mm3 (4.5-10.0)
[2025-07-02] MEDS: NOREPINEPHRINE 8 MG/D5W 250 ML 8 MG/250 ML BAG 9.38 MG IV CONT (14:50)
--- NOTE | 2025-07-02 14:51 | ED.GENADULT ---
HPI - General Adult General Chief complaint: Cardiac Arrest/CPR Stated complaint: CARDIAC ARREST Time Seen by Provider: 07/02/25 14:38 History of Present Illness HPI narrative: 70-year-old male history of atrial flutter, high cholesterol, hypertension, atrial flutter presents emergency department for evaluation after being found trapped between the toilet and the bathroom wall. Last time family heard from the patient was last night. When they found the patient this afternoon he was responsive an EMS was called. EMS had a difficult time extracting the patient from the small room and the tight entrapment. After patient was removed from the entrapped area he had loss of consciousness and loss of pulse. Patient had CPR started had 4 rounds of epinephrine on scene and a [place] device was in place. While in route to the emergency department patient did have ROSC. Upon arrival to the emergency department patient did have a weak pulse but was still unresponsive. Related Data Home Medications ?Medication ?Instructions ?Recorded ?Confirmed ?Last Taken ?Type magnesium 200 mg tablet 400 mg PO DAILY 10/29/19 03/12/25 02/28/24 History cholecalciferol (vitamin D3) 125 125 mcg PO DAILY 12/17/20 03/12/25 02/28/24 History mcg (5,000 unit) capsule Allergies Allergy/AdvReac Type Severity Reaction Status Date / Time No Known Allergies Allergy Verified 07/02/25 19:48 Review of Systems Review of Systems: All systems reviewed & are unremarkable except as noted in HPI and below PMFSH Past Medical History Medical History Fall Atrial flutter with rapid ventricular response COVID-19 vaccine series completed Dyslipidemia HTN (hypertension), benign History of gout History of tobacco use Vitamin D deficiency Surgical History Surgical History H/O gastric bypass Family History Family History Father Hypertension Dementia Social History Social History (Updated 03/12/25 @ 09:58 by Irish Amin MA) Smoking packs per day: 1 Smoking cigarettes per day: 20.0 Years smoked: 30 Smoking pack-years: 30.00 Smoking status: Current every day smoker Tobacco type: cigarettes Second hand tobacco smoke exposure: Yes Alcohol intake: current Substance use: current Substance use type: marijuana Other substance usage details: gummies Last use: 02/27/24 Lack of Transportation: No Lack of Food: Never True Current Housing: I Have Housing Concerned About Future Housing: No Difficulty Paying Gas/Electric Bills: No Difficulty Paying for Meds: No Currently Unemployed: No Education: High School Diploma/GED Difficulty w/ Childcare or Family Care: No Spiritual care concerns: No Exam Narrative: APPEARANCE: Unresponsive HEAD: Facial edema EYES: Fixed and dilated NOSE: Normal no drainage EARS:TMS clear with good light reflex. THROAT: Intubated NECK: Supple. No adenopathy, no masses. RESPIRATORY: Ventilated breath sounds CARDIOVASCULAR: Regular rhythm ABDOMINAL: Distended abdomen decreased bowel sounds MUSCULOSKELETAL: Ecchymosis and injury to left knee, right shoulder NEURO: Unresponsive with fixed and dilated pupils SKIN: Initially cyanotic on arrival Course Vital Signs Vital signs: Vital Signs Pulse Rate 132 H 07/02/25 14:03 Respiratory Rate 19 07/02/25 14:03 Blood Pressure 83/72 L 07/02/25 14:03 Temperature 97.1 F L 07/02/25 19:00 Pulse Rate 103 H 07/02/25 19:31 Respiratory Rate 19 07/02/25 19:00 Blood Pressure 151/137 H 07/02/25 19:31 Pulse Oximetry 97 07/02/25 19:00 Oxygen Delivery Mechanical Ventilation 07/02/25 18:38 Fraction of Inspired Oxygen 60 07/02/25 19:05 Procedures Central Line Placement Right IJ: Discussed w/ the patient/family/POA,the placement of a central venous catheter, including its clinical necessity/indication & associated potential risks, benifits and alternatives.: Yes Performed Emergently - Given emergent patient condition, temporal constraints may have precluded informed consent.: Yes Time Out Performed: Yes Patient Placed on Monitor/Pulse Ox: Yes Max. Sterile Barrier Technique: Caps, large sterile sheet and hand hygiene Central Line Prep: 2% chlorhexidine scrub and sterile drapes applied Technique: US-Guided Ultrasound Used for Placement: Yes Central Line Lumen Inserted: triple Post Procedure: sutured in place, good blood return, all ports aspirated, flushed, capped and sterile dressing applied Post Procedure X-Ray: tip of catheter in good position and no pneumothorax seen Patient Tolerated Procedure: well and no complications Complications: none [facility] Narrative Medical decision making narrative: 70-year-old male present to the emergency department after ROSC. Patient was entrapped on the floor most likely had an and injured or ischemic limb and circulation was restored after he was no longer entrapped and patient had a surge of hyperkalemia. Patient's potassium was still elevated upon arrival to the emergency department. Patient was treated ultimately with 2 L normal saline and a L of lactated Ringer's. Patient was started on Levophed, vasopressin and epinephrine. Patient was treated for his hyperkalemia including sodium bicarb, fluids, calcium gluconate, albuterol, insulin and glucose and Kayexalate. Systems Project Manager was consulted. Patient was also discussed with the hospitalist. Patient remained unresponsive with no sedation. On repeat labs patient lactic acid did improve from 13-9.4. Patient had no improvement in the potassium. Patient did have a significantly elevated CPK greater than 16,000. Patient did have some peaked T-waves on his EKG. Patient and family were updated on the seriousness of the patient's condition. Differential Diagnosis Differential Diagnosis: Subdural hematoma, subarachnoid hemorrhage, CVA, ACS, mi, hyperkalemia, rhabdomyolysis Lab Data [facility] Lab Attestation statement: I personally reviewed the patient's lab results. 07/02/25 14:42 07/02/25 17:01 Labs: Lab Results 07/02/25 07/02/25 07/02/25 Range/Units 14:42 14:44 16:00 WBC 10.8 H (4.5-10.0) K/mm3 RBC 4.72 (4.6-6.20) M/mm3 Hgb 16.2 (14.0-18.0) g/dL Hct 49.2 (42.0-52.0) % MCV 104.2 H (80-100) fl MCH 34.3 H (26-34) pg MCHC 32.9 (32-36) g/dl RDW 13.9 (11.5-14.5) % Plt Count 197 (150-375) k/mm3 MPV 10.4 (7.4-10.4) fl Immature Gran % (Auto) 4.3 H (0-0.5) % Neut % (Auto) 68.2 (45.5-73.1) % Lymph % (Auto) 20.9 (18.3-44.2) % [place] % (Auto) 6.2 (2.6-8.5) % Eos % (Auto) 0.1 (0-4.4) % Baso % (Auto) 0.3 (0.2-1.2) % Lymph # (Auto) 2.27 (0.9-3.2) K/mm3 [place] # (Auto) 0.7 H (0.1-0.6) K/mm3 Eos # (Auto) 0.0 (0-0.3) K/mm3 Baso # (Auto) 0.0 (0.0-0.1) K/mm3 Abs Immat Gran (auto) 0.47 H (0.00-0.031) K/mm3 Absolute Neuts (auto) 7.4 H (1.3-6.7) K/mm3 Absolute Nucleated RBC 0.040 H (0.0-0.012) K/mm3 Nucleated RBC % 0.4 H (0.0-0.2) % ESR 1 (0-20) mm/hr PT 19.1 H (11.1-14.7) Seconds INR 1.6 APTT 55.5 H (22.3-36.8) Seconds Methemoglobin (0-1.5) %THb Minute Volume Vent Mode Tidal Volume ml PEEP cmH2O Peak Inspir Pressure Pressure Support Sodium 123 L (137-145) mmol/L Potassium 7.1 H* (3.4-5.0) mmol/L Chloride 95 L (98-107) mmol/L Carbon Dioxide 8 L (22-30) mmol/L Anion Gap 20 H (4-12) mmol/L BUN 9 (9-20) mg/dL Creatinine 2.24 H (0.7-1.3) mg/dL Estim Creat Clear Calc Not Reportable Estimated GFR 29 L (59 - ) Glucose 203 H (65-110) mg/dL POC Capillary Glucose 194 H (65-105) mg/dl Lactic Acid 13.2 H* (0.7-2.0) mmol/L Calcium 7.9 L (8.4-10.2) mg/dL Phosphorus 11.9 H (2.5-4.5) mg/dL Magnesium 2.5 H (1.6-2.3) mg/dL Total Bilirubin 1.0 (0.2-1.3) mg/dL AST 945 H (17-59) U/L ALT 165 H (6-50) U/L Alkaline Phosphatase 74 (38-126) U/L Total Creatine Kinase > 81220 H (55-170) U/L Troponin I 0.076 H* (0.000-0.034) ng/mL C-Reactive Protein 3.7 H (<1.0) mg/dL NT-Pro-B Natriuret Pep 2320 H (19.9-100) pg/mL Total Protein 5.5 L (6.3-8.2) g/dL Albumin 2.9 L (3.5-5.1) g/dL Procalcitonin 0.5 ng/mL Blood Type O Positive Antibody Screen Negative 07/02/25 07/02/25 Range/Units 16:05 17:01 WBC (4.5-10.0) K/mm3 RBC (4.6-6.20) M/mm3 Hgb (14.0-18.0) g/dL Hct (42.0-52.0) % MCV (80-100) fl MCH (26-34) pg MCHC (32-36) g/dl RDW (11.5-14.5) % Plt Count (150-375) k/mm3 MPV (7.4-10.4) fl Immature Gran % (Auto) (0-0.5) % Neut % (Auto) (45.5-73.1) % Lymph % (Auto) (18.3-44.2) % [place] % (Auto) (2.6-8.5) % Eos % (Auto) (0-4.4) % Baso % (Auto) (0.2-1.2) % Lymph # (Auto) (0.9-3.2) K/mm3 [place] # (Auto) (0.1-0.6) K/mm3 Eos # (Auto) (0-0.3) K/mm3 Baso # (Auto) (0.0-0.1) K/mm3 Abs Immat Gran (auto) (0.00-0.031) K/mm3 Absolute Neuts (auto) (1.3-6.7) K/mm3 Absolute Nucleated RBC (0.0-0.012) K/mm3 Nucleated RBC % (0.0-0.2) % ESR (0-20) mm/hr PT (11.1-14.7) Seconds INR APTT (22.3-36.8) Seconds Methemoglobin 0.7 (0-1.5) %THb Minute Volume Not Reportable Vent Mode Cmv Tidal Volume 400 ml PEEP 5 cmH2O Peak Inspir Pressure Not Reportable Pressure Support Not Reportable Sodium 119 L* (137-145) mmol/L Potassium 7.1 H* (3.4-5.0) mmol/L Chloride 94 L (98-107) mmol/L Carbon Dioxide 9 L (22-30) mmol/L Anion Gap 16 H (4-12) mmol/L BUN 10 (9-20) mg/dL Creatinine 2.24 H (0.7-1.3) mg/dL Estim Creat Clear Calc 42 Estimated GFR 29 L (59 - ) Glucose 218 H (65-110) mg/dL POC Capillary Glucose (65-105) mg/dl Lactic Acid 9.4 H* (0.7-2.0) mmol/L Calcium 7.3 L (8.4-10.2) mg/dL Phosphorus (2.5-4.5) mg/dL Magnesium (1.6-2.3) mg/dL Total Bilirubin (0.2-1.3) mg/dL AST (17-59) U/L ALT (6-50) U/L Alkaline Phosphatase (38-126) U/L Total Creatine Kinase (55-170) U/L Troponin I (0.000-0.034) ng/mL C-Reactive Protein (<1.0) mg/dL NT-Pro-B Natriuret Pep (19.9-100) pg/mL Total Protein (6.3-8.2) g/dL Albumin (3.5-5.1) g/dL Procalcitonin ng/mL Blood Type Antibody Screen ABG Data ABG results: 07/02/25 16:05 Puncture Site Left brachial ABG pH 6.947 L* ABG pCO2 65.6 H* ABG pO2 210.9 H ABG PO2/FiO2 Ratio 2.11 ABG HCO3 14.0 L ABG O2 Saturation 98.7 ABG O2 Content 23.1 H ABG Base Excess -19.2 A-a Gradient 436.5 Oxyhemoglobin 96.6 Carboxyhemoglobin 1.8 Reduced Hemoglobin 0.9 Total Hemoglobin 16.7 O2 Delivery Device Ventilator O2 Liters/Min Not Reportable Vent Rate 18 FiO2 100 Imaging Data Radiologist's impression: ITS Impressions Head CT 07/02/25 14:19 IMPRESSION: 1. No acute intracranial findings. Chest/Abdomen/Pelvis CTA 07/02/25 15:41 IMPRESSION: 1. Bilateral lower lobe airspace consolidation may represent atelectasis and/or pneumonia. Consider aspiration. 2: Pleural-based right upper lobe nodule measuring 8 mm. Recommend follow-up CT in 6 months. 3: Air-fluid levels in nondilated bowel throughout the abdomen, consistent with ileus. No transition point. Knee CT 07/02/25 15:48 IMPRESSION: 1. Possible acute nondisplaced fracture at the tibial spine. Recommend correlation with MRI. Abdomen X-Ray 07/02/25 16:28 IMPRESSION: 1: NG tube tip in the stomach. Chest X-Ray 07/02/25 19:33 Impression: 1: Interval progression of pulmonary edema. Critical Care Time Critical Care Time Critical Care Time: Yes Time Type: Intermittent Initial evaluation, discuss w/ involved parties, attempting to gather old records: 10 minutes Documenting medical record: 10 minutes Review of results (EKG's, labs, imaging): 5 minutes Serial repeat bedside evaluation: 20 minutes Discussing case with multiple memebers of the care team and consultants: 10 minutes Total Critical Care Time: 55 Discharge Plan Discharge Clinical Impression: Cardiac arrest, Acute hyperkalemia, Rhabdomyolysis, Anoxic brain injury Patient Disposition: Still a Patient Condition: Critical
--- NOTE | 2025-07-02 14:52 | ECG_ITS ---
Test Date: 2025-07-02 14:57:09 Measurements Intervals [place] Rate: 92 P: 54 [place]: 211 QRS: -33 QRSD: 104 T: 32 QT: 354 QTc: 440 Interpretive Statements SINUS RHYTHM WITH FIRST DEGREE AV BLOCK POSSIBLE LEFT ATRIAL ENLARGEMENT INCOMPLETE RIGHT BUNDLE BRANCH BLOCK LOW QRS VOLTAGE IN PRECORDIAL LEADS CONSIDER INFERIOR INFARCT, AGE INDETERMINATE BORDERLINE ST-T WAVE ABNORMALITY- ANTERIOR LEADS ABNORMAL ECG Compared to ECG 07/02/2025 14:04:33 HEART RATE HAS DECREASED First degree AV block now present POSSIBLE ISCHEMIA NO LONGER PRESENT Electronically Signed On 07-02-2025 18:57:31 FEEDER CATCHER TOBACCO by Ernesto Bermudez D.O.
[2025-07-02 15:01] LABS: INR 1.6; Prothrombin Time 19.1 Seconds (11.1-14.7)
[2025-07-02 15:02] LABS: Partial Thromboplastin Time 55.5 Seconds (22.3-36.8)
[2025-07-02 15:22] LABS: Alanine Aminotransferase 165 U/L (6-50); Albumin Level 2.9 g/dL (3.5-5.1); Alkaline Phosphatase 74 U/L (38-126); Anion Gap 20 mmol/L (4-12); Bilirubin,Total 1.0 mg/dL (0.2-1.3); Blood Urea Nitrogen 9 mg/dL (9-20); Calcium 7.9 mg/dL (8.4-10.2); Carbon Dioxide 8 mmol/L (22-30); Chloride 95 mmol/L (98-107); Estimated Glomerular Filt Rate 29; Glucose 203 mg/dL (65-110); NT Pro B Type Natriuretic Pept 2320 pg/mL (19.9-100); Potassium 7.1 mmol/L (3.4-5.0); Sodium 123 mmol/L (137-145); Total Protein 5.5 g/dL (6.3-8.2); Troponin I 0.076 ng/mL (0.000-0.034)
[2025-07-02 15:23] LABS: Aspartate Amino Transferase 945 U/L (17-59)
[2025-07-02] MEDS: LACTATED RINGERS 1,000 ML 250 ML IV CONT (15:40)
[2025-07-02 15:53] LABS: Procalcitonin 0.5 ng/mL
[2025-07-02 15:54] LABS: CRP 3.7 mg/dL (<1.0); Magnesium 2.5 mg/dL (1.6-2.3)
[2025-07-02] MEDS: SODIUM POLYSTYRENE SULFONONATE 15 GM/60 ML BTL 30 GM RECTAL ×2 (16:00→22:21)
[2025-07-02] MEDS: DEXTROSE 50% 25 GM/50 ML SYRINGE IV PUSH ×2 (16:01→18:36)
[2025-07-02] MEDS: SODIUM BICARBONATE 8.4% 50 MEQ/50 ML SYRINGE IV PUSH ×3 (16:01→19:00)
[2025-07-02] MEDS: CALCIUM GLUC 1,000 MG/NS 50 ML 1,000 MG/50 ML BAG 100 MG IVPB ×3 (16:02→18:41)
[2025-07-02] MEDS: INSULIN HUMAN REGULAR (*BKC) 100 UNITS/ML 10 UNITS IV PUSH ×2 (16:02→18:35)
[2025-07-02] MEDS: LACTATED RINGERS 1,000 ML 999 ML IV CONT (16:02)
[2025-07-02 16:09] LABS: Alveolar/Arterial O2 Gradient 436.5 mmHg; Carboxyhemoglobin 1.8 % THb (0-2.0); Fractional Inspired Oxygen 100 %; HCO3 ABG 14.0 mEq/l (22.0-26.0); Methemoglobin ABG 0.7 %THb (0-1.5); Oxygen Content ABG 23.1 %vol (16.0-22.0); Oxygen Saturation ABG 98.7 % (95.0-100.0); PO2 ABG 210.9 mmHg (80.0-100.0); PO2 FiO2 Ratio Arterial Blood 2.11 %; Reduced Hemoglobin 0.9 %THb (0-5.0)
[2025-07-02 16:12] LABS: PCO2 ABG 65.6 mmHg (35.0-45.0); Site Drawn LEFT BRACHIAL
[2025-07-02 16:13] LABS: Arterial Blood Gas Tidal Volume 400 ml; Arterial Blood Gas Ventilator rate 18 /MIN
[2025-07-02 16:18] LABS: Creatine Kinase > 16000 U/L (55-170)
[2025-07-02] MEDS: VASOPRESSIN INJ 100 UNITS in DEXTROSE 5% 95 ML IV CONT (16:35)
[2025-07-02] MEDS: ALBUTEROL SULFATE NEB 2.5 MG/3 ML INH 10 MG INHALATION (16:38)
--- NOTE | 2025-07-02 16:59 | PCCCNOTE ---
Called to the ED for a Code Blue. Stayed with family until pt. was stable enough to have visitors. Questions answered, no further needs at this time.
--- NOTE | 2025-07-02 17:10 | WPCEDHO ---
ED Hand Off Checklist All vitals saved:yes IV Site documented:yes All med administrations documented:yes Triage Note Triage Note Pt to ED via EMS from home c/o 07/02/25 14:03 cardiac arrest. See note. Allergies No Known Allergies Allergy (Verified 03/12/25 09:52) Family History (Last Reviewed 03/12/25 @ 09:57 by Irish Amin MA) Father Hypertension Dementia Active Medications including assessments/comments Norepinephrine Bitartrate (Levophed 8 Mg/D5w 250 Ml) 8 mg in 250 mls @ 56.25 mls/hr IV CONT .Q4H27M STA; Protocol Stop: 07/02/25 19:05 Last Titration: 07/02/25 16:22 Dose: 30 mcg/min, 56.25 mls/hr Documented By: DELMER Infusion/Titration Document 07/02/25 16:22 KLM (Rec: 07/02/25 16:23 KLM [id number]) Intake IV Site Central Catheter, Triple Lumen Right Jugular, Internal Intake 14.4 Cumulative Intake ( 14.4 bag) Cumulative Intake ( 14.4 Rx) Container Volume 235.6 Waste Amount 0 Dosing Dose Rate 30 Infusion Rate 56.25 Cumulative Dose 0.4608 Increase/Decrease Increased Elapsed Time Elapsed Time ( 1h 32m minutes) Norepinephrine Infusion Assess Document 07/02/25 16:22 KLM (Rec: 07/02/25 16:23 KLM [id number]) Infusion Action Norepinephrine Initiated Infusion Action Pulse Pulse Rate (60-100) 97 Blood Pressure Blood Pressure (100/ 83/39 L 60-140/90) Blood Pressure Mean 53 Admin: 07/02/25 14:50 Dose: 5 mcg/min, 9.38 mls/hr Documented By: NELIDA Infusion/Titration Document 07/02/25 14:50 KLM (Rec: 07/02/25 15:50 KLM [id number]) Intake IV Site Central Catheter, Triple Lumen Right Jugular, Internal Container Volume 250 Waste Amount 0 Dosing Dose Rate 5 Infusion Rate 9.38 Increase/Decrease Started Elapsed Time Elapsed Time ( 0m minutes) Norepinephrine Infusion Assess Document 07/02/25 14:50 KLM (Rec: 07/02/25 15:50 KLM [id number]) Infusion Action Norepinephrine Initiated Infusion Action Pulse Pulse Rate (60-100) 92 Blood Pressure Blood Pressure (100/ 83/72 L 60-140/90) Blood Pressure Mean 75 Lactated Ringer's (Lr - Lactated Ringers Iv) 1,000 mls @ 250 mls/hr IV CONT .Q4H STA Stop: 07/02/25 18:52 Last Infusion: 07/02/25 17:09 Dose: Infused Documented By: DELMER Infusion/Titration Document 07/02/25 17:09 DELMER (Rec: 07/02/25 17:09 DELMER [id number]) Intake Intake 1,000 Cumulative Intake ( 1,000 bag) Cumulative Intake ( 1,000 Rx) Container Volume 0 Waste Amount 0 Dosing Infusion Rate 0 Cumulative Dose Not Applicable Increase/Decrease Infused Elapsed Time Elapsed Time ( 1h 29m minutes) Admin: 07/02/25 15:40 Dose: 250 mls/hr Documented By: DELMER Infusion/Titration Document 07/02/25 15:40 DELMER (Rec: 07/02/25 16:23 DELMER [id number]) Intake IV Site Central Catheter, Triple Lumen Right Jugular, Internal Container Volume 1,000 Waste Amount 0 Dosing Infusion Rate 250 Cumulative Dose Not Applicable Increase/Decrease Started Elapsed Time Elapsed Time ( 0m minutes) Vasopressin 100 units/ (Dextrose) 100 mls @ 1.2 mls/hr IV CONT .Q72H STA; Protocol Stop: 07/05/25 16:13 Last Admin: 07/02/25 16:35 Dose: 0.02 units/min, 1.2 mls/hr Documented By: DELMER Infusion/Titration Document 07/02/25 16:35 KLM (Rec: 07/02/25 16:35 NELIDA [id number]) Intake IV Site Central Catheter, Triple Lumen Right Jugular, Internal Container Volume 100 Waste Amount 0 Dosing Dose Rate 0.02 Infusion Rate 1.2 Increase/Decrease Started Elapsed Time Elapsed Time ( 0m minutes) Vasopressin Infusion Assessmen Document 07/02/25 16:35 DELMER (Rec: 07/02/25 16:35 KL [id number]) Infusion Action Vasopressin Infusion Initiated Action Pulse Pulse Rate (60-100) 102 H Blood Pressure Blood Pressure (100/ 94/31 L 60-140/90) Blood Pressure Mean 52 Administered/Completed Medications Discontinued Medications Albuterol (Albuterol Sulfate Neb 2.5 Mg/3 Ml Inh) 10 mg INHALATION ONCE STA Stop: 07/02/25 15:25 Last Admin: 07/02/25 16:38 Dose: 10 mg Documented By: AMELIE Dextrose (Dextrose 50% 25 Gm/50 Ml Syringe) 25 gm IV PUSH ONCE STA Stop: 07/02/25 15:25 Last Admin: 07/02/25 16:01 Dose: 25 gm Documented By: DELMER Lactated Ringer's (Lr - Lactated Ringers Iv) 1,000 mls @ 999 mls/hr IV CONT .Q1H1M STA Stop: 07/02/25 15:38 Last Admin: 07/02/25 16:02 Dose: 999 mls/hr Documented By: DELMER Calcium Gluconate (Calcium Gluc 1,000 Mg/Ns 50 Ml) 1,000 mg in 50 mls @ 100 mls/hr IVPB ONCE STA Stop: 07/02/25 15:53 Last Infusion: 07/02/25 17:09 Dose: Infused Documented By: Admin: 07/02/25 16:02 Dose: 100 mls/hr Documented By: DELMER Sodium Chloride (Normal Saline Iv) 1,000 mls @ 999 mls/hr IV CONT .Q1H1M STA Stop: 07/02/25 16:25 Last Admin: 07/02/25 17:08 Dose: Not Given Documented By: DELMER Non-Admin Reason: No Dose Required Insulin Human Regular (Insulin Human Regular (*Bkc) 100 Units/Ml) 10 units IV PUSH ONCE ONE Stop: 07/02/25 15:25 Last Admin: 07/02/25 16:02 Dose: 10 units Documented By: DEMLER Co-signed By: MLI Sodium Bicarbonate (Sodium Bicarbonate 8.4% 50 Meq/50 Ml Syringe) 50 meq IV PUSH ONCE STA Stop: 07/02/25 14:42 Last Admin: 07/02/25 16:01 Dose: 50 meq Documented By: DELMER Notes 07/02/25 16:59 Care Coordination Note by Jennifer Bridges Called to the ED for a Code Blue. Stayed with family until pt. was stable enough to have visitors. Questions answered, no further needs at this time. Initialized on 07/02/25 16:59 - END OF NOTE 07/02/25 13:57 Nurse Note by Crissy Thapa Pt arrives to ED room 5 at 1356, unresponsive with a pulse. Ems reports pt was originally alert and awake, was found in between toilet and wall in bathroom. When ems sat pt up, he was awake for approx 1 min and then went unresponsive and pulseless. Initial rhythm for ems was PEA and then pt went into asystole. Ems gave 4 epi and 1 push dose epi. Intubated with 7.5 ETT [address] lip[address] EDP Dr. Sharp and RT at bedside. Pt placed on likepak and HR [address] Sharp reports pt pupils fixed and dilated at 1359. Initialized on 07/02/25 13:57 - END OF NOTE Interventions/Assessments IV / Saline Lock, Insert Start: 07/02/25 13:54 Freq: Status: Active Protocol: Document 07/02/25 14:05 MLI (Rec: 07/02/25 14:05 MLI [id number]) IV Assessment Intraosseous Right Leg, Lower IV Catheter Access Initiated Before Arrival IV Insertion Date 07/02/25 IV Site Assessment WNL IV Care and WNL Maintenance IV / Saline Lock, Insert Start: 07/02/25 14:34 Freq: STAT Status: Active Protocol: Document 07/02/25 15:49 KLM (Rec: 07/02/25 15:50 KLM [id number]) IV Assessment Central Catheter, Triple Lumen Right Jugular, Internal IV Catheter Access Initiated IV Insertion Date 07/02/25 IV Insertion Time 13:45 Ultrasound Used for Yes Placement IV Site Assessment WNL IV Care and WNL Maintenance PA: Respiratory Assessment Start: 07/02/25 13:54 Freq: Status: Active Protocol: Document 07/02/25 16:29 KLM (Rec: 07/02/25 16:29 KLM [id number]) Respiratory Assessment Effort Normal Pattern Regular Depth Normal Chest Expansion Symmetrical Cough Description None Oxygen Delivery Oxygen Delivery Mechanical Ventilation Pulse Oximetry (90- 97 100) Last Vital Signs Pulse Rate 99 07/02/25 16:40 Respiratory Rate 20 07/02/25 16:40 Pulse Oximetry 97 07/02/25 16:29 Blood Pressure 94/31 L 07/02/25 16:35 Blood Pressure Mean 52 07/02/25 16:35 Oxygen Delivery Mechanical Ventilation 07/02/25 16:29 Fraction of Inspired Oxygen 50 07/02/25 16:20 Last Result - Abnormals Only WBC 10.8 K/mm3 (4.5-10.0) H 07/02/25 14:42 MCV 104.2 fl (80-100) H 07/02/25 14:42 MCH 34.3 pg (26-34) H 07/02/25 14:42 Immature Gran % (Auto) 4.3 % (0-0.5) H 07/02/25 14:42 Arthur # (Auto) 0.7 K/mm3 (0.1-0.6) H 07/02/25 14:42 Abs Immat Gran (auto) 0.47 K/mm3 (0.00-0.031) H 07/02/25 14:42 Absolute Neuts (auto) 7.4 K/mm3 (1.3-6.7) H 07/02/25 14:42 Absolute Nucleated RBC 0.040 K/mm3 (0.0-0.012) H 07/02/25 14:42 Nucleated RBC % 0.4 % (0.0-0.2) H 07/02/25 14:42 PT 19.1 Seconds (11.1-14.7) H 07/02/25 14:42 APTT 55.5 Seconds (22.3-36.8) H 07/02/25 14:42 ABG pH 6.947 (7.350-7.450) L* 07/02/25 16:05 ABG pCO2 65.6 mmHg (35.0-45.0) H* 07/02/25 16:05 ABG pO2 210.9 mmHg (80.0-100.0) H 07/02/25 16:05 ABG HCO3 14.0 mEq/l (22.0-26.0) L 07/02/25 16:05 ABG O2 Content 23.1 %vol (16.0-22.0) H 07/02/25 16:05 Sodium 123 mmol/L (137-145) L 07/02/25 14:42 Potassium 7.1 mmol/L (3.4-5.0) H* 07/02/25 14:42 Chloride 95 mmol/L (98-107) L 07/02/25 14:42 Carbon Dioxide 8 mmol/L (22-30) L 07/02/25 14:42 Anion Gap 20 mmol/L (4-12) H 07/02/25 14:42 Creatinine 2.24 mg/dL (0.7-1.3) H 07/02/25 14:42 Estimated GFR 29 (59-) L 07/02/25 14:42 Glucose 203 mg/dL (65-110) H 07/02/25 14:42 POC Capillary Glucose 194 mg/dl (65-105) H 07/02/25 16:00 Lactic Acid 13.2 mmol/L (0.7-2.0) H* 07/02/25 14:42 Calcium 7.9 mg/dL (8.4-10.2) L 07/02/25 14:42 Phosphorus 11.9 mg/dL (2.5-4.5) H 07/02/25 14:42 Magnesium 2.5 mg/dL (1.6-2.3) H 07/02/25 14:42 AST 945 U/L (17-59) H 07/02/25 14:42 ALT 165 U/L (6-50) H 07/02/25 14:42 Total Creatine Kinase > 21730 U/L (55-170) H 07/02/25 14:42 Troponin I 0.076 ng/mL (0.000-0.034) H* 07/02/25 14:42 C-Reactive Protein 3.7 mg/dL (<1.0) H 07/02/25 14:42 NT-Pro-B Natriuret Pep 2320 pg/mL (19.9-100) H 07/02/25 14:42 Total Protein 5.5 g/dL (6.3-8.2) L 07/02/25 14:42 Albumin 2.9 g/dL (3.5-5.1) L 07/02/25 14:42
[2025-07-02 17:21] LABS: Anion Gap 16 mmol/L (4-12); Blood Urea Nitrogen 10 mg/dL (9-20); Calcium 7.3 mg/dL (8.4-10.2); Carbon Dioxide 9 mmol/L (22-30); Chloride 94 mmol/L (98-107); Estimated CRCL calculation 42 ml/min; Estimated Glomerular Filt Rate 29; Glucose 218 mg/dL (65-110); Potassium 7.1 mmol/L (3.4-5.0); Sodium 119 mmol/L (137-145)
[2025-07-02] MEDS: EPINEPHrine HCL INJ 4 MG in DEXTROSE 5% IN WATER 250 ML 3.81 MG IV CONT (17:44)
[2025-07-02] MEDS: SODIUM CHLORIDE 0.9% IV 1,000 ML 250 ML IV CONT ×2 (17:53→22:21)
--- NOTE | 2025-07-02 18:09 | P.HP_ITS ---
H&P: HPI History of Present Illness Date/Time: 07/02/25 18:09 Chief Complaint: Cardiac Arrest Narrative: The patient is a 70 year old history of atrial flutter, high cholesterol, hypertension, atrial flutter, who was admitted to the ICU after a cardiac arrest en route with EMS. Family had not heard from him since the night before and when EMS arrive he was stuck between the toilet and bathroom wall. His son said he had hit his head and he had fallen into the drywall. It was a difficult extraction and tight entrapment. Immediately after he was removed from the entrapped area, he lost consciousness and lost a pulse. He required 4 rounds of CPR and 4 rounds of epinephrine. A juan a device was used. Before arrival to the ER he had ROSC. [place] [address], lactate 13.2, Potassium 7.1, creatinine 2.24. BNP 2320, troponin 0.076. He was hypotensive and a central line was placed. He was started on pressors, vasopressin, levo, and epi. An NG tube was placed to LIS, peace was placed. Head CT no acute findings. CTA showed bilateral lower lobe airspace consolidation, possible aspiration. Also air fluid levels in nondilated bowel, consistent with ileus. Knee CT showed a possible acute nondisplaced fracture at the tibial spine. Recommend MRI. Hyperkalemia was treated with bicarb, dextrose, kayexalate but unchanged, still 7.1 He was transferred to the ICU. Unresponsive and intubated on arrival. Next of kin is son Deangelo [phone], decision maker. Requested we call for all changes. Review of Systems Review of Systems: Unable to obtain due to altered mental status [facility], [facility] Past Medical History Medical History Fall Atrial flutter with rapid ventricular response COVID-19 vaccine series completed Dyslipidemia HTN (hypertension), benign History of gout History of tobacco use Vitamin D deficiency Surgical History Surgical History H/O gastric bypass Family History Family History Father Hypertension Dementia Social History Social History (Updated 03/12/25 @ 09:58 by Irish Amin MA) Smoking packs per day: 1 Smoking cigarettes per day: 20.0 Years smoked: 30 Smoking pack-years: 30.00 Smoking status: Current every day smoker Tobacco type: cigarettes Second hand tobacco smoke exposure: Yes Alcohol intake: current Substance use: current Substance use type: marijuana Other substance usage details: gummies Last use: 02/27/24 Lack of Transportation: No Lack of Food: Never True Current Housing: I Have Housing Concerned About Future Housing: No Difficulty Paying Gas/Electric Bills: No Difficulty Paying for Meds: No Currently Unemployed: No Education: High School Diploma/GED Difficulty w/ Childcare or Family Care: No Spiritual care concerns: No Meds Home Medications and Allergies Home Medications ?Medication ?Instructions ?Recorded ?Confirmed ?Type magnesium 200 mg tablet 400 mg PO DAILY 10/29/1910/01 History cholecalciferol (vitamin D3) 125 125 mcg PO DAILY 12/0803/12/25 History mcg (5,000 unit) capsule diltiazem HCl 120 mg capsule,24 120 mg PO QAM #30 caps 03/01/24 03/12/25 Rx hr,extended release azithromycin 250 mg tablet See Rx Instructions PO .COM PLEX #6 03/12/25 Rx (Zithromax Z-Christopher) tabs allopurinol 100 mg tablet See Rx Instructions .Route 1 07/26/24 Rx .COMPLEX #180 tabs furosemide 40 mg tablet (Lasix) 40 mg PO DAILY #90 tab s 06/19/25 Rx potassium chloride 20 mEq 20 meq PO DAILY #90 tabs 06/03 Rx tablet,extended release (K-Tab) lisinopril 20 mg tablet See Rx Instructions .Route 1 08/28/24 Rx .COMPLEX #90 tabs Allergies Allergy/AdvReac Type Severity Reaction Status Date / Time No Known Allergies Allergy Verified 07/02/25 19:48 Vital Signs Vital Signs - 24 hr 07/02/25 14:03 07/02/25 14:35 07/02/25 14:50 Temperature Pulse Rate 132 H 98 92 Respiratory Rate 19 Blood Pressure 83/72 L 83/72 L Pulse Oximetry 93 Oxygen Delivery Mechanical Ventilation Fraction of Inspired Oxygen 100 07/02/25 15:38 07/02/25 15:40 07/02/25 15:40 Temperature 96.8 F L 96.9 F L Pulse Rate 96 94 95 Respiratory Rate 18 17 Blood Pressure 84/64 L Pulse Oximetry 99 82 L Oxygen Delivery Mechanical Ventilation Fraction of Inspired Oxygen 100 07/02/25 15:45 07/02/25 15:46 07/02/25 16:00 Temperature 97.0 F L 97.0 F L 96.8 F L Pulse Rate 93 94 95 Respiratory Rate 10 L 13 17 Blood Pressure 129/96 H Pulse Oximetry 100 Oxygen Delivery Fraction of Inspired Oxygen 07/02/25 16:20 07/02/25 16:22 07/02/25 16:29 Temperature Pulse Rate 112 H 97 Respiratory Rate Blood Pressure 83/39 L Pulse Oximetry 98 97 Oxygen Delivery Mechanical Ventilation Mechanical Ventilation Fraction of Inspired Oxygen 50 07/02/25 16:35 07/02/25 16:37 07/02/25 16:39 Temperature 95.8 F L 95.8 F L Pulse Rate 102 H 98 98 Respiratory Rate 18 15 Blood Pressure 94/31 L 63/51 L Pulse Oximetry 94 94 Oxygen Delivery Fraction of Inspired Oxygen 07/02/25 16:40 07/02/25 16:41 07/02/25 16:45 Temperature 95.8 F L 95.8 F L Pulse Rate 99 98 98 Respiratory Rate 20 17 18 Blood Pressure 73/23 L Pulse Oximetry 94 95 Oxygen Delivery Fraction of Inspired Oxygen 07/02/25 16:47 07/02/25 16:56 07/02/25 17:00 Temperature 95.8 F L 95.8 F L 95.8 F L Pulse Rate 103 H 105 H 105 H Respiratory Rate 16 14 20 Blood Pressure 75/34 L 121/68 Pulse Oximetry 94 94 92 Oxygen Delivery Fraction of Inspired Oxygen 07/02/25 17:02 07/02/25 17:07 07/02/25 17:13 Temperature 95.8 F L 95.9 F L 95.9 F L Pulse Rate 97 96 94 Respiratory Rate 16 16 15 Blood Pressure 80/24 L 45/35 L Pulse Oximetry 93 93 94 Oxygen Delivery Fraction of Inspired Oxygen 07/02/25 17:15 07/02/25 17:19 07/02/25 17:20 Temperature 96.0 F L 96.0 F L 96.0 F L Pulse Rate 94 93 93 Respiratory Rate 18 14 19 Blood Pressure 57/28 L 57/28 L Pulse Oximetry 94 93 Oxygen Delivery Mechanical Ventilation Fraction of Inspired Oxygen 07/02/25 17:21 07/02/25 17:44 07/02/25 17:52 Temperature 96.0 F L Pulse Rate 93 92 91 Respiratory Rate 18 20 Blood Pressure 73/63 L 75/51 L Pulse Oximetry Oxygen Delivery Fraction of Inspired Oxygen Exam Narrative: General - Unresponsive, lying in bed, on the ventillator Eyes - PERRLA, EOM intact ENT - No thrush, No erythema Neck - No noticeable or palpable swelling Lymph Nodes - No lymphadenopathy Cardiovascular - RRR no m/r/g, no JVD Lungs: Clear to auscultation, No wheezing, use of accessory muscles, no crackles or wheezes. Skin - Skin warm and dry, injuries to head, right shoulder Abdomen - Normal bowel sounds, abdomen soft and nontender Extremities - No edema, cyanosis or clubbing Musculoskeletal - 5/5 strength, normal range of motion, no swollen or erythematous joints. Neurological ? Unresponsive to painful stimuli. . Psych: Normal mood and affect Results Labs Labs: Short CBC 07/02/25 Range/Units 14:42 WBC 10.8 H (4.5-10.0) K/mm3 Hgb 16.2 (14.0-18.0) g/dL Hct 49.2 (42.0-52.0) % Plt Count 197 (150-375) k/mm3 [facility] 07/02/25 07/02/25 14:42 17:01 Sodium 123 L 119 L* Potassium 7.1 H* 7.1 H* Chloride 95 L 94 L Carbon Dioxide 8 L 9 L BUN 9 10 Creatinine 2.24 H 2.24 H Glucose 203 H 218 H Calcium 7.9 L 7.3 L Cardiac Enzymes 07/02/25 Range/Units 14:42 Total Creatine Kinase > 85379 H (55-170) U/L Troponin I 0.076 H* (0.000-0.034) ng/mL Liver Function 07/02/25 Range/Units 14:42 Total Bilirubin 1.0 (0.2-1.3) mg/dL AST 945 H (17-59) U/L ALT 165 H (6-50) U/L Alkaline Phosphatase 74 (38-126) U/L Albumin 2.9 L (3.5-5.1) g/dL Critical Care Time Critical Care Time Critical Care Time: Yes Time Type: Continuous Initial evaluation, discuss w/ involved parties, attempting to gather old records: 30 minutes Documenting medical record: 15 minutes Review of results (EKG's, labs, imaging): 10 minutes Serial repeat bedside evaluation: 10 minutes Discussing case with multiple memebers of the care team and consultants: 5 minutes Total Critical Care Time: 70 Quality VTE Prophylaxis VTE prophylaxis: pharmacologic ordered Assessment and Plan Assessment and plan (1) Cardiac arrest: Code(s): I46.9 - Cardiac arrest, cause unspecified Status: Acute Assessment and Plan: Treating distributive and cardiogenic shock. Less likely sepsis/infectious Likely 2/2 to acute hyperkalemia, metabolic acidosis. --Treatment of metabolic acidosis as noted --TTE --Cardiology consult --Monitoring on tele (2) Respiratory failure: Code(s): J96.90 - Respiratory failure, unspecified, unspecified whether with hypoxia or hypercapnia Status: Acute Assessment and Plan: Initial ABG pH6.9/pCO2 65.6/HCO3 14/ O2sat 98.7, repeat 7.042/pCO2 61.3/HCO3 16.3. Currently on 50% on the vent TV 450 increased to 500 Rate 20 increase to 24 Peep 5 --Recheck ABG in AM (3) Unresponsive: Code(s): R41.89 - Other symptoms and signs involving cognitive functions and awareness Status: Acute Assessment and Plan: Currently unresponsive Neuro checks q4 (4) Acute hyperkalemia: Code(s): E87.5 - Hyperkalemia Status: Acute Assessment and Plan: Acute hyperkalemia second rhabdo --Trend potassium. s/p Calcium, dextrose, insulin, bicarb drip, kayexalate (5) Rhabdomyolysis: Code(s): M62.82 - Rhabdomyolysis Status: Acute Assessment and Plan: CK >76722 Additional 1 liter bolus NS, bicarb drip --Follow CK --Renal consult with GEO (6) Aspiration pneumonia: Code(s): J69.0 - Pneumonitis due to inhalation of food and vomit Status: Acute Assessment and Plan: Possible aspiration on CT --Start Zosyn (7) Shock: Code(s): R57.9 - Shock, unspecified Status: Acute Assessment and Plan: Currently on levophed, epinephrine, and vasopressin --NS bolus 1 liter, 2 amps of bicarb, then bicarb drip --Start D51/2 with 150 bicarb --Follow metabolic acidosis (8) Tibial fracture: Code(s): S82.209A - Unspecified fracture of shaft of unspecified tibia, initial encounter for closed fracture Status: Acute Assessment and Plan: Knee CT showed a possible acute nondisplaced fracture at the tibial spine --MRI knee pending improvement --ortho consult tomorrow if not worsening --neurovascular checks q4 (9) Morbid obesity: Code(s): E66.01 - Morbid (severe) obesity due to excess calories Status: Acute Assessment and Plan: Complicates care (10) Elevated AST (SGOT): Code(s): R74.01 - Elevation of levels of liver transaminase levels Status: Acute Assessment and Plan: Elevated in the setting of hypotension and shock: AST 945, ALT 165, Alk phos 74 --Follow LFT's (11) Elevated troponin: Code(s): R79.89 - Other specified abnormal findings of blood chemistry Status: Acute Assessment and Plan: Elevated in the setting of cardiac arrest/cpr BNP elevated 2320 Troponin elevated to 0.076<0.179 --Trend troponin --Echo (12) Hyperglycemia: Code(s): R73.9 - Hyperglycemia, unspecified Status: Acute Assessment and Plan: Hx diabetes, not on medications --Accuchecks q6, SSI (13) Goals of care, counseling/discussion: Code(s): Z71.89 - Other specified counseling Status: Acute Assessment and Plan: Next of kin is his son, Humphrey Montanez [phone] He is aware that the prognosis is poor and that his father may not make it th rough the night, and that there is a high probability of neurologic injury He wishes him to be a full code for now but would consider hospice if he doesn't show improvement. His father expressed that he would not want to go to a longterm Time Spent with Patient Time with patient: 75 minutes or greater Hospitalist MIPS Advance Care Plan I have confirmed that the patient's Advanced Care Plan is present, code status is documented, or surrogate decision maker is listed in patient medical record.: Yes Medication Reconciliation I have utilized all available resources to obtain, update and review the patients current medications (includes all prescriptions, OTC, herbals, cannabis, and nutritional supplements).: Yes
--- NOTE | 2025-07-02 18:19 | ADMGEN ---
This patient, Michael Montanez, was admitted to Intensive Care Unit-1 at 1819. Patient/family oriented to hospital policies and general routines including ID bracelet, bed and alarms, visiting hours, pain management, procedures, bathroom and other care routines, personal items, smoking policy, room service/diet, and visiting hours. Information on how to activate the Rapid Response Team has been discussed. Patient/Family are encouraged to report perceived risks to care and to ask questions if they do not understand what they are told or what they should do.
[2025-07-02] MEDS: PIPERACILLIN/TAZOBACTAM SOD 3.375 GM in SODIUM CHLORIDE 0.9% IV 50 ML 100 ML IVPB (18:35)
[2025-07-02] MEDS: SODIUM CHLORIDE 0.9% IV 1,000 ML 999 ML IV CONT (18:47)
[2025-07-02] MEDS: NOREPINEPHRINE 8 MG/D5W 250 ML 8 MG/250 ML BAG 56.25 MG IV CONT (18:54)
[2025-07-02] MEDS: SODIUM BICARBONATE 8.4% 150 MEQ in DEXTROSE 5% 1,000 ML 950 ML IV CONT (19:22)
[2025-07-02 19:32] LABS: Alveolar/Arterial O2 Gradient 246.8 mmHg; Fractional Inspired Oxygen 60 %; HCO3 ABG 16.3 mEq/l (22.0-26.0); Oxygen Content ABG 21.9 %vol (16.0-22.0); Oxygen Saturation ABG 95.8 % (95.0-100.0); PO2 ABG 113.6 mmHg (80.0-100.0); PO2 FiO2 Ratio Arterial Blood 1.89 %
[2025-07-02 19:37] LABS: Modified Allen's Test Pass; PCO2 ABG 61.3 mmHg (35.0-45.0); Site Drawn LEFT BRACHIAL
[2025-07-02 19:38] LABS: Arterial Blood Gas Tidal Volume 450 ml; Arterial Blood Gas Ventilator rate 20 /MIN
[2025-07-02] MEDS: ALBUMIN HUMAN 25% 25 GM/100 ML 100 ML IVPB (20:13)
[2025-07-02 21:33] LABS: Anion Gap 18 mmol/L (4-12); Blood Urea Nitrogen 11 mg/dL (9-20); Calcium 7.8 mg/dL (8.4-10.2); Carbon Dioxide 10 mmol/L (22-30); Chloride 97 mmol/L (98-107); Estimated CRCL calculation 44 ml/min; Estimated Glomerular Filt Rate 31; Glucose 171 mg/dL (65-110); Potassium 5.8 mmol/L (3.4-5.0); Sodium 125 mmol/L (137-145)
[2025-07-02 21:47] LABS: Troponin I 0.179 ng/mL (0.000-0.034)
--- NOTE | 2025-07-02 22:03 | WNDPHOTO ---
PHOTO ONLY - See Nursing Notes and/ or assessments for documentation.
[2025-07-02] MEDS: fentaNYL CITRATE INJ (*CRX) 100 MCG/2 ML VIAL 25 MCG IV PUSH (22:14)
--- NOTE | 2025-07-02 22:14 | WNDPHOTO ---
PHOTO ONLY - See Nursing Notes and/ or assessments for documentation.
[2025-07-02] MEDS: CENTRAL LINE FLUSH 10 ML IV PUSH (22:22)
--- NOTE | 2025-07-02 22:24 | WNDPHOTO ---
PHOTO ONLY - See Nursing Notes and/ or assessments for documentation.
--- NOTE | 2025-07-02 22:32 | ECG_ITS ---
Test Date: 2025-07-02 22:36:58 Measurements Intervals Castile Rate: 149 P: 0 WA: 0 QRS: -25 QRSD: 102 T: 53 QT: 285 QTc: 450 Interpretive Statements SUPRAVENTRICULAR TACHYCARDIA INCOMPLETE RIGHT BUNDLE BRANCH BLOCK LOW QRS VOLTAGE- DIFFUSE LEADS BASELINE WANDER- V2 ABNORMAL ECG Compared to ECG 07/02/2025 14:57:09 Sinus rhythm no longer present Electronically Signed On 07-03-2025 09:14:03 [employer] by Ernesto Bermudez D.O.
--- NOTE | 2025-07-02 22:51 | PC.NURSE ---
3224 notified son Humphrey of condition changes. Family returning to hospital.
[2025-07-02 23:28] LABS: Fractional Inspired Oxygen 100 %; HCO3 VBG 22.0 mEq/l (24.0-30.0); PCO2 VBG 57.8 mmHg (42.0-48.0); PO2 VBG 50.9 mmHg (35.0-45.0)
[2025-07-02 23:34] LABS: Liters per Minute 15.0 LPM; pH VBG 7.199 (7.300-7.400)
[2025-07-02] MEDS: NOREPINEPHRINE 8 MG/D5W 250 ML 8 MG/250 ML BAG 75 MG IV CONT (23:36)
--- NOTE | 2025-07-02 23:50 | P.CONIN_ITS ---
Assessment and Plan Assessment and plan (1) Anoxic brain injury: Code(s): G93.1 - Anoxic brain damage, not elsewhere classified Status: Acute (2) Acute hyperkalemia: Code(s): E87.5 - Hyperkalemia Status: Acute (3) Cardiac arrest: Code(s): I46.9 - Cardiac arrest, cause unspecified Status: Acute (4) Atrial flutter with rapid ventricular response: Code(s): I48.92 - Unspecified atrial flutter Status: Acute (5) Septic shock: Code(s): A41.9 - Sepsis, unspecified organism; R65.21 - Severe sepsis with septic shock Status: Acute Plan 1. Multiorgan system failure, pneumonia, rhabdomyolysis, hyperkalemia, acute kidney injury, anoxic brain injury, severe sepsis with septic shock are responsive to pressors. I had a long conversation with the family and expressed to them the severity of the condition. I have given orders for comfort care and is expected the patient will pass soon since he is on maximum dose of pressors with severe metabolic acidosis. Ladies Underwear Operator Consult Note Consult date: 07/02/25 Time Seen: 23:50 Reason for consult: Multiorgan system failure, septic shock, pneumonia, rhabdomyolysis, hyperkalemia, GEO, metabolic acidosis HPI: Michael Montanez is a 70 year old male with history of paroxysmal atrial fibrillation/flutter, hypertension who was found minimally responsive systolic between the toilet and the bathroom wall. It took as many as 7 people to extricate him out and he developed cardiac arrest. He had 4 rounds of epinephrine and when he arrived to the ER he had a pulse and was intubated. Patient developed severe shock requiring central line placement and pressors, he was found to have bilateral pneumonia, hyperkalemia, GEO was started on antibiotics from IV fluids and treatment for hyperkalemia and brought to the ICU. He had persistent metabolic acidosis and shock. We started him on Levophed and then added vasopressin followed by epinephrine. Despite of massive doses of those medications his blood pressures remained in the 60s. I asked the family to come to discuss the case with me. When I arrived to see him his systolic blood pressure was 66 with a heart rate of 150 on maximum doses of pressors Review of Systems 2 Review of Systems: ROS unobtainable: Yes unobtainable due to endotracheal tube, unobtainable due to medical condition and unobtainable due to mental status [facility] Past Medical History Medical History (Updated 07/02/25 @ 23:59 by Jean Marie Prado MD) Anoxic brain injury Fall Atrial flutter with rapid ventricular response COVID-19 vaccine series completed Dyslipidemia HTN (hypertension), benign History of gout History of tobacco use Vitamin D deficiency Surgical History Surgical History H/O gastric bypass Family History Family History Father Hypertension Dementia Social History Social History (Updated 03/12/25 @ 09:58 by Irish Amin MA) Smoking packs per day: 1 Smoking cigarettes per day: 20.0 Years smoked: 30 Smoking pack-years: 30.00 Smoking status: Current every day smoker Tobacco type: cigarettes Second hand tobacco smoke exposure: Yes Alcohol intake: current Substance use: current Substance use type: marijuana Other substance usage details: gummies Last use: 02/27/24 Lack of Transportation: No Lack of Food: Never True Current Housing: I Have Housing Concerned About Future Housing: No Difficulty Paying Gas/Electric Bills: No Difficulty Paying for Meds: No Currently Unemployed: No Education: High School Diploma/GED Difficulty w/ Childcare or Family Care: No Spiritual care concerns: No Meds Home Medications and Allergies Home Medications ?Medication ?Instructions ?Recorded ?Confirmed ?Type magnesium 200 mg tablet 400 mg PO DAILY 10/29/1910/01 History cholecalciferol (vitamin D3) 125 125 mcg PO DAILY 12/0803/12/25 History mcg (5,000 unit) capsule diltiazem HCl 120 mg capsule,24 120 mg PO QAM #30 caps 03/01/24 03/12/25 Rx hr,extended release azithromycin 250 mg tablet See Rx Instructions PO .COM PLEX #6 03/12/25 Rx (Zithromax Z-Christopher) tabs allopurinol 100 mg tablet See Rx Instructions .Route 1 07/26/24 Rx .COMPLEX #180 tabs furosemide 40 mg tablet (Lasix) 40 mg PO DAILY #90 tab s 06/19/25 Rx potassium chloride 20 mEq 20 meq PO DAILY #90 tabs 06/03 Rx tablet,extended release (K-Tab) lisinopril 20 mg tablet See Rx Instructions .Route 1 08/28/24 Rx .COMPLEX #90 tabs Allergies Allergy/AdvReac Type Severity Reaction Status Date / Time No Known Allergies Allergy Verified 07/02/25 19:48 Vital Signs Vital Signs - 24 hr 07/02/25 14:03 07/02/25 14:35 07/02/25 14:50 Temperature Pulse Rate 132 H 98 92 Respiratory Rate 19 Blood Pressure 83/72 L 83/72 L Pulse Oximetry 93 Oxygen Delivery Mechanical Ventilation Fraction of Inspired Oxygen 100 07/02/25 15:38 07/02/25 15:40 07/02/25 15:40 Temperature 96.8 F L 96.9 F L Pulse Rate 96 94 95 Respiratory Rate 18 17 Blood Pressure 84/64 L Pulse Oximetry 99 82 L Oxygen Delivery Mechanical Ventilation Fraction of Inspired Oxygen 100 07/02/25 15:45 07/02/25 15:46 07/02/25 16:00 Temperature 97.0 F L 97.0 F L 96.8 F L Pulse Rate 93 94 95 Respiratory Rate 10 L 13 17 Blood Pressure 129/96 H Pulse Oximetry 100 Oxygen Delivery Fraction of Inspired Oxygen 07/02/25 16:20 07/02/25 16:22 07/02/25 16:29 Temperature Pulse Rate 112 H 97 Respiratory Rate Blood Pressure 83/39 L Pulse Oximetry 98 97 Oxygen Delivery Mechanical Ventilation Mechanical Ventilation Fraction of Inspired Oxygen 50 07/02/25 16:35 07/02/25 16:37 07/02/25 16:39 Temperature 95.8 F L 95.8 F L Pulse Rate 102 H 98 98 Respiratory Rate 18 15 Blood Pressure 94/31 L 63/51 L Pulse Oximetry 94 94 Oxygen Delivery Fraction of Inspired Oxygen 07/02/25 16:40 07/02/25 16:41 07/02/25 16:45 Temperature 95.8 F L 95.8 F L Pulse Rate 99 98 98 Respiratory Rate 20 17 18 Blood Pressure 73/23 L Pulse Oximetry 94 95 Oxygen Delivery Fraction of Inspired Oxygen 07/02/25 16:47 07/02/25 16:56 07/02/25 17:00 Temperature 95.8 F L 95.8 F L 95.8 F L Pulse Rate 103 H 105 H 105 H Respiratory Rate 16 14 20 Blood Pressure 75/34 L 121/68 Pulse Oximetry 94 94 92 Oxygen Delivery Fraction of Inspired Oxygen 07/02/25 17:02 07/02/25 17:07 07/02/25 17:13 Temperature 95.8 F L 95.9 F L 95.9 F L Pulse Rate 97 96 94 Respiratory Rate 16 16 15 Blood Pressure 80/24 L 45/35 L Pulse Oximetry 93 93 94 Oxygen Delivery Fraction of Inspired Oxygen 07/02/25 17:15 07/02/25 17:19 07/02/25 17:20 Temperature 96.0 F L 96.0 F L 96.0 F L Pulse Rate 94 93 93 Respiratory Rate 18 14 19 Blood Pressure 57/28 L 57/28 L Pulse Oximetry 94 93 Oxygen Delivery Mechanical Ventilation Fraction of Inspired Oxygen 07/02/25 17:21 07/02/25 17:44 07/02/25 17:52 Temperature 96.0 F L Pulse Rate 93 92 91 Respiratory Rate 18 20 Blood Pressure 73/63 L 75/51 L Pulse Oximetry Oxygen Delivery Fraction of Inspired Oxygen 07/02/25 18:01 07/02/25 18:09 07/02/25 18:29 Temperature 96.6 F L Pulse Rate 95 104 H 96 Respiratory Rate 20 Blood Pressure 83/69 L 45/15 L Pulse Oximetry 93 90 Oxygen Delivery Mechanical Ventilation Fraction of Inspired Oxygen 50 07/02/25 18:37 07/02/25 18:37 07/02/25 18:37 Temperature Pulse Rate 98 98 98 Respiratory Rate Blood Pressure 97/63 L 97/63 L 97/63 L Pulse Oximetry Oxygen Delivery Fraction of Inspired Oxygen 07/02/25 18:38 07/02/25 18:43 07/02/25 18:54 Temperature Pulse Rate 101 H 101 H Respiratory Rate Blood Pressure 106/74 Pulse Oximetry 93 Oxygen Delivery Mechanical Ventilation Fraction of Inspired Oxygen 50 70 07/02/25 18:54 07/02/25 18:55 07/02/25 18:57 Temperature 97.1 F L Pulse Rate 102 H 102 H 101 H Respiratory Rate 19 Blood Pressure 106/74 106/74 103/49 L Pulse Oximetry 98 Oxygen Delivery Fraction of Inspired Oxygen 07/02/25 19:00 07/02/25 19:05 07/02/25 19:17 Temperature 97.1 F L Pulse Rate 104 H 104 H Respiratory Rate 19 Blood Pressure 99/66 L 125/104 H Pulse Oximetry 97 Oxygen Delivery Fraction of Inspired Oxygen 60 07/02/25 19:31 07/02/25 20:19 07/02/25 23:21 Temperature Pulse Rate 103 H 105 H 115 H Respiratory Rate Blood Pressure 151/137 H 103/83 Pulse Oximetry 94 Oxygen Delivery Mechanical Ventilation Fraction of Inspired Oxygen 60 07/02/25 23:36 Temperature Pulse Rate 115 H Respiratory Rate Blood Pressure 103/83 Pulse Oximetry Oxygen Delivery Fraction of Inspired Oxygen Exam 2 Narrative: Hypotensive with a systolic blood pressure of 66 heart rate of 154 Const: Other: All responses HENMT: Other: Pupils are pinpoint and nonreactive Neck: Neck: no JVD Resp: Other: Rales and rhonchi present bilaterally, tachypneic Cardio: Rate: tachycardic Other: No definite murmur GI: Inspection: distended Other: Tympanitic without any bowel sounds Neuro: Other: Completely unresponsive including painful stimuli as well as reflexes patient does breathe over the vent Results Labs 07/02/25 14:42 07/02/25 21:16 Labs: Short CBC 07/02/25 Range/Units 14:42 WBC 10.8 H (4.5-10.0) K/mm3 Hgb 16.2 (14.0-18.0) g/dL Hct 49.2 (42.0-52.0) % Plt Count 197 (150-375) k/mm3 [facility] 07/02/25 07/02/25 07/02/25 14:42 17:01 21:16 Sodium 123 L 119 L* 125 L Potassium 7.1 H* 7.1 H* 5.8 H Chloride 95 L 94 L 97 L Carbon Dioxide 8 L 9 L 10 L BUN 9 10 11 Creatinine 2.24 H 2.24 H 2.11 H Glucose 203 H 218 H 171 H Calcium 7.9 L 7.3 L 7.8 L Cardiac Enzymes 07/02/25 07/02/25 Range/Units 14:42 21:16 Total Creatine Kinase > 01268 H (55-170) U/L Troponin I 0.076 H* 0.179 H* D (0.000-0.034) ng/mL Liver Function 07/02/25 Range/Units 14:42 Total Bilirubin 1.0 (0.2-1.3) mg/dL AST 945 H (17-59) U/L ALT 165 H (6-50) U/L Alkaline Phosphatase 74 (38-126) U/L Albumin 2.9 L (3.5-5.1) g/dL Critical Care Time Critical Care Time Time Type: Intermittent Initial evaluation, discuss w/ involved parties, attempting to gather old records: 15 minutes Documenting medical record: 5 minutes Review of results (EKG's, labs, imaging): 5 minutes Serial repeat bedside evaluation: 10 minutes Discussing case with multiple memebers of the care team and consultants: 10 minutes Total Critical Care Time: 45
[2025-07-03] VITALS: BP 101/77; PULSE 115; PULSE 170; RESP 31; TEMP 37; O2SAT 84
[2025-07-03] MEDS: LORazepam INJ (*CRX) 2 MG/ML VIAL IV PUSH (00:10)
[2025-07-03] MEDS: MORPHINE SULFATE INJ (*CRX) 10 MG/ML AMP 5 MG IV PUSH (00:11)
--- NOTE | 2025-07-03 11:18 | PC.NURSE ---
2220 T - 98.4HR - 148 RR - 24 BP 91/28 SaO2 - unable to read, repositioned in an attempt to obtain an SaO2 2235 EKG obtained 2237 BP 64 SaO2 64% Removed patient from ventilator and began oxygenating with BVM [address] Prado concerning patient - ordered all pressors (Levophed, Vassor, epi gtt's maxed per MD ordere)
[2025-07-04 13:08] LABS: Calcium, Ionized 3.6 mg/dL (4.5-5.6)
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
== END 2025-07-03 00:30 | disposition expired | DRG 871 ==
LOC: ANHED 16:24 → ANHICU 07-07 13:47
PROVIDERS: Internal Medicine Critical Care Medicine; Nurse Practitioner Acute Care; Admitting Provider Internal Medicine; Emergency Provider Emergency Medicine; PCP Emergency Medicine; Visit Provider Internal Medicine
DX: A41.51 Sepsis due to Escherichia coli [E. coli] (principal); J18.9 Pneumonia, unspecified organism; J96.90 Respiratory failure, unspecified, unspecified whether with hypoxia or hypercapnia; R65.21 Severe sepsis with septic shock; J69.0 Pneumonitis due to inhalation of food and vomit; S82.115A Nondisplaced fracture of left tibial spine, initial encounter for closed fracture; I48.92 Unspecified atrial flutter; K56.7 Ileus, unspecified; M62.82 Rhabdomyolysis; G93.1 Anoxic brain damage, not elsewhere classified; N17.9 Acute kidney failure, unspecified; E87.20 Acidosis, unspecified; A41.1 Sepsis due to other specified staphylococcus; I46.9 Cardiac arrest, cause unspecified; W19.XXXA Unspecified fall, initial encounter; I48.0 Paroxysmal atrial fibrillation; I10 Essential (primary) hypertension; E87.5 Hyperkalemia; E66.01 Morbid (severe) obesity due to excess calories; E55.9 Vitamin D deficiency, unspecified; E78.5 Hyperlipidemia, unspecified; F17.210 Nicotine dependence, cigarettes, uncomplicated; M10.9 Gout, unspecified; R74.01 Elevation of levels of liver transaminase levels; R73.9 Hyperglycemia, unspecified; Z98.84 Bariatric surgery status
CPT/HCPCS: 36415; 36556; 36600; 70450; 71045; 71275; 73700; 74174; 80048; 80053; 82330; 82375; 82550; 82803; 82805; 82948; 83050; 83605; 83735; 83880; 84100; 84145; 84484; 85018; 85025; 85610; 85652; 85730; 86140; 86850; 86900; 86901; 87040; 87186; 93005; 94002; 94640; 96361; 96365; 96366; 96367; 96375; 99291; A9270; C1751; J0166; J0612; J1815; J2060; J2270; J2543; J3010; J7030; J7060; J7070; J7120; P9047; Q9967